=== PATIENT | female | born 1985 | race Caucasian/White ===

== ENCOUNTER 2019-02-13 19:41 | Emergency (ER) | payer SELFPAY ==
--- NOTE | 2019-02-13 20:21 | EDM.PDOC ---
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 Past medical history: As per history of present illness and as reviewed below otherwise noncontributory. Surgical history: As per history of present illness and as reviewed below otherwise noncontributory. Social history: No reported history of drug or alcohol abuse. Family history: As per history of present illness and as reviewed below otherwise noncontributory. Physical exam: HEENT: Atraumatic, normocephalic, pupils reactive, negative for conjunctival pallor or scleral icterus, mucous membranes moist, throat clear, neck supple, nontender, trachea midline. Lungs: Clear to auscultation, breath sounds equal bilaterally, chest nontender. Heart: S1S2, regular, negative for clicks, rubs, or JVD. Abdomen: Soft, nondistended, nontender. Negative for masses or hepatosplenomegaly. Negative for costovertebral tenderness. Pelvis: Stable nontender. Genitourinary: Deferred. Rectal: Deferred. Extremities: Atraumatic, negative for cords or calf pain. Neurovascular unremarkable. Neuro: Awake, alert, oriented. Cranial nerves II through XII unremarkable. Cerebellum unremarkable. Motor and sensory unremarkable throughout. Exam nonfocal. Diagnostics: CBC CMP quantitative beta UA pelvic ultrasound ABO Rh Therapeutics: None Impression: #1 threatened Definitive disposition and diagnosis as appropriate pending reevaluation and review of above. 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 - Past Surgical History HEENT Surgical History: Reports: Eye Surgery GI Surgical History: Reports: Cholecystectomy Female Surgical History: Reports: Section Social & Family History - Family History Family Medical History: Noncontributory - Tobacco Use Smoking Status *Q: Current Every Day Smoker Years of Tobacco use: 18 Packs/Tins Daily: 1 - Recreational Drug Use Recreational Drug Use: Yes Drug Use in Last 12 Months: Yes Recreational Drug Type: Reports: Marijuana/Hashish Recreational Drug Use Frequency: Socially ED ROS GENERAL - Review of Systems Review Of Systems: ROS reveals no pertinent complaints other than HPI. ED EXAM, GENERAL - Physical Exam Exam: See Below (See dictation) Course - Vital Signs Last Recorded V/S: Last Vital Signs Temp 36.4 C 02/13/19 19:41 Pulse 100 02/13/19 19:41 Resp 18 02/13/19 19:41 BP 115/55 L 02/13/19 19:41 Pulse Ox - Orders/Labs/Meds Orders: Active Orders 24 hr Category Date Time Status OB 1st Tri Sgl 1st Gest [US] Stat Exams 02/13/19 20:06 Stop Req OB 2 Or 3 Tri Sgl 1st Gest [US] Stat Exams 02/13/19 20:07 Ordered ABO/RH TYPE [BBK] Stat Lab 02/13/19 20:05 Ordered CBC WITH AUTO DIFF [HEME] Stat Lab 02/13/19 20:05 Ordered COMPREHENSIVE METABOLIC PN,CMP [CHEM] Stat Lab 02/13/19 20:05 Ordered HCG QUANTITATIVE [CHEM] Stat Lab 02/13/19 20:05 Ordered UA RFX ALESSANDRO AND CULT IF INDIC [URIN] Stat Lab 02/13/19 20:05 Ordered Departure - Departure Time of Disposition: 20:20 Disposition: Home, Self-Care 01 Condition: Good Clinical Impression: Threatened - Discharge Information Referrals: PCP,None [Primary Care Provider] - Additional Instructions: The following information is given to patients seen in the emergency department who are being discharged to home. This information is to outline your options for follow-up care. We provide all patients seen in our emergency department with a follow-up referral. The need for follow-up, as well as the timing and circumstances, are variable depending upon the specifics of your emergency department visit. If you don't have a primary care physician on staff, we will provide you with a referral. We always advise you to contact your personal physician following an emergency department visit to inform them of the circumstance of the visit and for follow-up with them and/or the need for any referrals to a consulting specialist. The emergency department will also refer you to a specialist when appropriate. This referral assures that you have the opportunity for followup care with a specialist. All of these measure are taken in an effort to provide you with optimal care, which includes your followup. Under all circumstances we always encourage you to contact your private physician who remains a resource for coordinating your care. When calling for followup care, please make the office aware that this follow-up is from your recent emergency room visit. If for any reason you are refused follow-up, please contact the [facility] emergency department at and asked to speak to the emergency department charge nurse. [facility] Primary Care - Women's Health [address] [place] [id number] Vaginal rest as discussed follow-up women's health about called schedule routine appointment return as needed as discussed - My Orders Last 24 Hours: My Active Orders 02/13/19 20:05 ABO/RH TYPE [BBK] Stat CBC WITH AUTO DIFF [HEME] Stat COMPREHENSIVE METABOLIC PN,CMP [CHEM] Stat HCG QUANTITATIVE [CHEM] Stat UA RFX ALESSANDRO AND CULT IF INDIC [URIN] Stat 02/13/19 20:06 OB 1st Tri Sgl 1st Gest [US] Stat 02/13/19 20:07 OB 2 Or 3 Tri Sgl 1st Gest [US] Stat - Assessment/Plan Last 24 Hours: My Active Orders 02/13/19 20:05 ABO/RH TYPE [BBK] Stat CBC WITH AUTO DIFF [HEME] Stat COMPREHENSIVE METABOLIC PN,CMP [CHEM] Stat HCG QUANTITATIVE [CHEM] Stat UA RFX ALESSANDRO AND CULT IF INDIC [URIN] Stat 02/13/19 20:06 OB 1st Tri Sgl 1st Gest [US] Stat 02/13/19 20:07 OB 2 Or 3 Tri Sgl 1st Gest [US] Stat
[2019-02-13 21:14] LABS: CHLORIDE,CL 105 mmol/L (98-107); SODIUM,NA 137 mmol/L (136-145)
--- NOTE | 2019-02-13 22:13 | US ---
INDICATION: Cramping, LMP October 01, 2018 TECHNIQUE: Ultrasound OB pelvis transabdominal. Real-time lechuga-scale imaging of the fetus was performed. COMPARISON: None FINDINGS: Sonographic imaging demonstrates a single living intrauterine gestation. Fetus demonstrates a regular cardiac rate of 146 beats per minute. Fetus has a breech orientation. The placenta lies posterior without evidence of placenta previa. Amniotic fluid volume appears normal. The composite ultrasound gestational age is calculated at 19 weeks 4 days with an estimated sonographic due date of July 06, 2019. The estimated weight is 319 grams which lies at the 80 %. The following biometric measurements were obtained: Biparietal diameter: 4.25 cm/19 weeks 0 days Head circumference: 15.97 cm/18 weeks 6 days Abdominal circumference: 15.81 cm/21 weeks 0 days Femur length: 2.93 cm/19 weeks 1 day On limited anatomic survey, there is a normal appearance of the cerebral ventricles, cisterna magna and cerebellum. There is a four-chamber heart. There is a three-vessel cord. The kidneys and bladder are normal. The cervical, thoracic, and lumbar spine demonstrate no anomalies. IMPRESSION: 1.Single viable intrauterine . Normal placenta. 2.No intrinsic abnormalities noted on limited anatomic survey. 3. Gestational age is calculated at 19 weeks 3 days with estimated due date of July 06, 2019. Dictated by Farnaz Vargas MD @ Feb 13 2019 10:04PM Signed by Dr. Farnaz Vargas @ Feb 13 2019 10:12PM
== END 2019-02-13 23:12 | disposition home or self-care (01) ==
LOC: MW.ED 19:41
DX: O20.0 Threatened abortion (principal); F17.210 Nicotine dependence, cigarettes, uncomplicated; Z88.8 Allergy status to other drugs, medicaments and biological substances
CPT/HCPCS: 36415; 76805; 76805-26; 80053; 81003; 84702; 85025; 86900; 86901; 99283; 99284-25

== ENCOUNTER 2019-05-01 09:30 | Emergency (ER) | payer SELFPAY ==
--- NOTE | 2019-05-01 09:34 | EDM.PDOC ---
ED HPI GENERAL MEDICAL PROBLEM - General Stated Complaint: TOOTH PAIN Time Seen by Provider: 05/01/19 09:33 Source of Information: Reports: Patient History Limitations: Reports: No Limitations - History of Present Illness INITIAL COMMENTS - FREE TEXT/NARRATIVE: HISTORY AND PHYSICAL: History of present illness: Patient is a 34-year-old female who presents to the emergency room today with complaints of dental pain 6 days to right lower posterior molar. She states that she has been using Aleve routinely with out much relief of the pain and soft tissue swelling. She is 30 weeks , receives care. Patient denies any fever, chills, headache, change in vision, syncope or near syncope. Denies any chest pain, back pain, shortness of breath or cough. Denies any abdominal pain, nausea, vomiting, diarrhea, constipation or dysuria. Denies any vaginal bleeding, cramping, or discharge. Patient has been eating and drinking appropriately. Review of systems: As per history of present illness and below otherwise all systems reviewed and negative. Past medical history: As per history of present illness and as reviewed below otherwise noncontributory. Surgical history: As per history of present illness and as reviewed below otherwise noncontributory. Social history: See social history for further information Family history: As per history of present illness and as reviewed below otherwise noncontributory. Physical exam: General: Well-developed and well-nourished 34-year-old female. Alert and oriented. Nontoxic appearing and in no acute distress. HEENT: Atraumatic, normocephalic, pupils equal and reactive bilaterally, negative for conjunctival pallor or scleral icterus, mucous membranes moist, patient is missing tooth #30. Soft tissue swelling along the gumline from 39- 32. TMs normal bilaterally, throat clear, neck supple, nontender, trachea midline. No drooling or trismus noted. No meningeal signs. No hot potato voice noted. Lungs: Clear to auscultation, breath sounds equal bilaterally, chest nontender. Heart: S1S2, regular rate and rhythm without overt murmur Abdomen: Soft, 30 weeks , nontender to palpation. Skin: Intact, warm, dry. No lesions or rashes noted. Extremities: Atraumatic, moves all extremities per self without difficulty or deficits, negative for cords or calf pain. Neurovascular unremarkable. Neuro: Awake, alert, oriented. Cranial nerves II through XII unremarkable. Cerebellum unremarkable. Motor and sensory unremarkable throughout. Exam nonfocal. Notes: Patient has no current complaints at this time. heart tones were obtained at bedside. Appropriate follow-up and medication education was reviewed. Supportive care measures were reviewed and discussed. Voices understanding and is agreeable to plan of care. Denies any further questions or concerns at this time. Diagnostics: None Therapeutics: Dental Balls Prescription: Clindamycin Impression: Dental Abscess Plan: 1. Please take the antibiotic as prescribed. 2. Tylenol as needed for pain management. "Tooth Balls" have been given to you; apply along the gumline every 2-3 hours as needed. Do not swallow these; external use only. 3. Follow-up with a dentist for definitive care. Return to the ED as needed and as discussed. Definitive disposition and diagnosis as appropriate pending reevaluation and review of above. 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 ED EXAM, ENT - Physical Exam Exam: See Below (See dictation) Course - Vital Signs Last Recorded V/S: Last Vital Signs Temp 97.6 F 05/01/19 09:44 Pulse 95 05/01/19 09:44 Resp 18 05/01/19 09:44 BP 101/60 05/01/19 09:44 Pulse Ox 95 05/01/19 09:44 - Orders/Labs/Meds Orders: Active Orders 24 hr Category Date Time Status Heart Tones [RC] ASDIRECTED Care 05/01/19 09:34 Active Meds: Medications Discontinued Medications Generic Name Dose Route Start Last Admin Trade Name Gallito PRN Reason Stop Dose Admin Benzocaine 2 each 05/01/19 09:48 Hurricaine One 20% MUCMEM 05/01/19 09:49 ONETIME ONE Lidocaine HCl 15 ml 05/01/19 09:48 Xylocaine 2% Viscous PO 05/01/19 09:49 ONETIME ONE Departure - Departure Time of Disposition: 09:58 Disposition: Home, Self-Care 01 Clinical Impression: Dental abscess - Discharge Information Prescriptions: Clindamycin HCl 300 mg PO TID 10 Days #30 capsule Instructions: Dental Abscess, [id number] Referrals: PCP,Unknown [Primary Care Provider] - Additional Instructions: The following information is given to patients seen in the emergency department who are being discharged to home. This information is to outline your options for follow-up care. We provide all patients seen in our emergency department with a follow-up referral. The need for follow-up, as well as the timing and circumstances, are variable depending upon the specifics of your emergency department visit. If you don't have a primary care physician on staff, we will provide you with a referral. We always advise you to contact your personal physician following an emergency department visit to inform them of the circumstance of the visit and for follow-up with them and/or the need for any referrals to a consulting specialist. The emergency department will also refer you to a specialist when appropriate. This referral assures that you have the opportunity for follow-up care with a specialist. All of these measure are taken in an effort to provide you with optimal care, which includes your follow-up. Under all circumstances we always encourage you to contact your private physician who remains a resource for coordinating your care. When calling for follow-up care, please make the office aware that this follow-up is from your recent emergency room visit. If for any reason you are refused follow-up, please contact the Emergency Department at and asked to speak to the emergency department charge nurse. Primary Care [address] [place] [id number] [facility] [address] [place] [phone] 1. Please take the antibiotic as prescribed. 2. Tylenol as needed for pain management. "Tooth Balls" have been given to you; apply along the gumline every 2-3 hours as needed. Do not swallow these; external use only. 3. Follow-up with a dentist for definitive care. Return to the ED as needed and as discussed. - My Orders Last 24 Hours: My Active Orders 05/01/19 09:34 Heart Tones [RC] ASDIRECTED - Assessment/Plan Last 24 Hours: My Active Orders 05/01/19 09:34 Heart Tones [RC] ASDIRECTED
[2019-05-01] MEDS ORDERED: Benzocaine 20% Topical Spray UD MUCMEM ONE (09:48)
[2019-05-01] MEDS ORDERED: Lidocaine 2% Viscous Solution 15 ML Cup PO ONE (09:48)
== END 2019-05-01 10:10 | disposition home or self-care (01) ==
LOC: MW.ED 09:30
DX: O99.613 Diseases of the digestive system complicating pregnancy, third trimester (principal); K04.7 Periapical abscess without sinus; O09.523 Supervision of elderly multigravida, third trimester; Z88.1 Allergy status to other antibiotic agents; Z88.8 Allergy status to other drugs, medicaments and biological substances; Z90.49 Acquired absence of other specified parts of digestive tract; Z3A.30 30 weeks gestation of pregnancy
CPT/HCPCS: 99282; A9270

== ENCOUNTER 2019-05-08 12:20 | Emergency (ER) | payer SELFPAY ==
[2019-05-08] MEDS ORDERED: Sodium Chloride 0.9% 1,000 ML IV ONE (12:35)
[2019-05-08] MEDS ORDERED: cefTRIAXone 1 GM in Premix Bag 1 BAG IV ONE (12:36)
--- NOTE | 2019-05-08 12:49 | EDM.PDOC ---
ED HPI GENERAL MEDICAL PROBLEM - General Chief Complaint: ENT Problem Stated Complaint: ABSESS Time Seen by Provider: 05/08/19 12:21 Source of Information: Reports: Patient History Limitations: Reports: No Limitations - History of Present Illness INITIAL COMMENTS - FREE TEXT/NARRATIVE: HISTORY AND PHYSICAL: History of present illness: Patient is a 34-year-old female who presents to the emergency room with complaints of right lower dental pain and abscess. She was seen in our emergency room for this dental abscess and was placed on clindamycin on . She has been taking her medication and did follow-up with a dentist today. She states that the dentist was going to drain the abscess but was concerned that it was "going into my neck" and wanted her to be reevaluated with lab work and possible imaging. Patient is currently 30 weeks , seeing for her OBGYN needs. She has no OB related concerns or complaints (vaginal bleeding, cramping, low back pain, etc..). 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 Review of systems: As per history of present illness and below otherwise all systems reviewed and negative. Past medical history: As per history of present illness and as reviewed below otherwise noncontributory. Surgical history: As per history of present illness and as reviewed below otherwise noncontributory. Social history: See social history for further information Family history: As per history of present illness and as reviewed below otherwise noncontributory. Physical exam: General: Well-developed and well-nourished 34-year-old female. Alert and oriented. Nontoxic appearing and in no acute distress. HEENT: Atraumatic, normocephalic, pupils equal and reactive bilaterally, negative for conjunctival pallor or scleral icterus, mucous membranes moist, TMs normal bilaterally, dental caries noted, soft tissue swelling along the gumline to the right posterior molars, throat clear, mild soft tissue swelling to right submandibular space with tenderness to palpation. Neck is supple, trachea midline. No drooling or trismus noted. No meningeal signs. No hot potato voice noted. Lungs: Clear to auscultation, breath sounds equal bilaterally, chest nontender. Heart: S1S2, regular rate and rhythm without overt murmur Abdomen: Soft, 30 weeks gestation, nontender. Negative for masses or hepatosplenomegaly. Negative for costovertebral tenderness. Skin: Intact, warm, dry. No lesions or rashes noted. Extremities: Atraumatic, moves all extremities per self without difficulty or deficits, negative for cords or calf pain. Neurovascular unremarkable. Neuro: Awake, alert, oriented. Cranial nerves II through XII unremarkable. Cerebellum unremarkable. Motor and sensory unremarkable throughout. Exam nonfocal. Notes: Risks versus benefits were thoroughly explained with patient and has been at bedside for a CT of the maxillofacial to rule out abscess. She would like to proceed forward with the CT scan. Increased soft tissue adjacent to the right angle of the mandible consistent with an abscess. Right-sided likely reactive cervical lip adenopathy. All findings were shared with the patient. She received Rocephin while here. I will extend her clindamycin for a total of 14 days. We discussed the need for follow- up with the oral surgeon. She states that the dentist she was at in [facility] gave her information for follow-up. 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 Vital signs remain stable Supportive care measures were reviewed and discussed. Voices understanding and is agreeable to plan of care. Denies any further questions or concerns at this time. Diagnostics: CBC, CMP, strep screen, CT maxillofacial Therapeutics: IV fluid, Rocephin Prescription: Clindamycin Impression: Dental Abscess Lymphadenopathy Plan: Take the Clindamycin for a total of 14 days (added 4 more days to your current regiment). Tylenol as needed See Dr Mcnally tomorrow as you have arranged. As we discussed the need to follow-up with the oral surgeon. Return to the ED as needed and as discussed. Definitive disposition and diagnosis as appropriate pending reevaluation and review of above. 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 - Infectious Disease History Infectious Disease History: Reports: Chicken Pox - Past Surgical History HEENT Surgical History: Reports: Eye Surgery GI Surgical History: Reports: Cholecystectomy Female Surgical History: Reports: Section Social & Family History - Family History Family Medical History: Noncontributory - Tobacco Use Smoking Status *Q: Current Every Day Smoker Years of Tobacco use: 18 Packs/Tins Daily: 1 - Caffeine Use Caffeine Use: Reports: Coffee, Energy Drinks, Soda - Recreational Drug Use Recreational Drug Use: No ED ROS ENT - Review of Systems Review Of Systems: ROS reveals no pertinent complaints other than HPI. ED EXAM, ENT - Physical Exam Exam: See Below (See dictation) Course - Vital Signs Last Recorded V/S: Last Vital Signs Temp 96.1 F 05/08/19 12:27 Pulse 92 05/08/19 12:27 Resp 18 05/08/19 12:27 BP 103/67 05/08/19 12:27 Pulse Ox 98 05/08/19 12:27 - Orders/Labs/Meds Orders: Active Orders 24 hr Category Date Time Status Heart Tones [ Heart Rate] [RC] Click to Edit Care 05/08/19 12:59 Active CULTURE STREP A CONFIRMATION [RM] Stat Lab 05/08/19 12:41 Results STREP SCRN A RAPID W CULT CONF [RM] Stat Lab 05/08/19 12:41 Results Labs: Laboratory Tests 05/08/19 05/08/19 Range/Units 12:41 12:41 WBC 16.23 H (4.0-11.0) K/uL RBC 3.74 L (4.30-5.90) M/uL Hgb 12.1 (12.0-16.0) g/dL Hct 35.2 L (36.0-46.0) % MCV 94.1 (80.0-98.0) fL MCH 32.4 H (27.0-32.0) pg MCHC 34.4 (31.0-37.0) g/dL RDW Std Deviation 45.7 (28.0-62.0) fl RDW Coeff of Mihai 13 (11.0-15.0) % Plt Count 399 (150-400) K/uL MPV 9.20 (7.40-12.00) fL Neut % (Auto) 73.9 (48.0-80.0) % Lymph % (Auto) 21.1 (16.0-40.0) % [place] % (Auto) 4.0 (0.0-15.0) % Eos % (Auto) 0.8 (0.0-7.0) % Baso % (Auto) 0.2 (0.0-1.5) % Neut # (Auto) 12.0 H (1.4-5.7) K/uL Lymph # (Auto) 3.4 H (0.6-2.4) K/uL [place] # (Auto) 0.7 (0.0-0.8) K/uL Eos # (Auto) 0.1 (0.0-0.7) K/uL Baso # (Auto) 0.0 (0.0-0.1) K/uL Nucleated RBC % 0.0 /100WBC Nucleated RBCs # 0 K/uL Sodium 137 (136-145) mmol/L Potassium 3.7 (3.5-5.1) mmol/L Chloride 104 (98-107) mmol/L Carbon Dioxide 23.0 (21.0-32.0) mmol/L BUN 7 (7.0-18.0) mg/dL Creatinine 0.7 (0.6-1.0) mg/dL Est Cr Clr Drug Dosing 113.16 mL/min Estimated GFR (MDRD) > 60.0 ml/min Glucose 114 H (74-106) mg/dL Calcium 8.6 (8.5-10.1) mg/dL Total Bilirubin 0.2 (0.2-1.0) mg/dL AST 9 L (15-37) IU/L ALT 14 (14-63) IU/L Alkaline Phosphatase 127 H (46-116) U/L Total Protein 6.1 L (6.4-8.2) g/dL Albumin 2.6 L (3.4-5.0) g/dL Globulin 3.5 (2.6-4.0) g/dL Albumin/Globulin Ratio 0.7 L (0.9-1.6) Meds: Medications Discontinued Medications Generic Name Dose Route Start Last Admin Trade Name Freq PRN Reason Stop Dose Admin Sodium Chloride 1,000 mls @ 999 mls/hr 05/08/19 12:35 05/08/19 12:45 Normal Saline IV 05/08/19 13:35 999 mls/hr STAT ONE Administration Ceftriaxone Sodium/Dextrose 1 50 mls @ 100 mls/hr 05/08/19 12:36 05/08/19 12: 45 gm/ Premix IV 05/08/19 13:05 100 mls/hr ONETIME ONE Administration Departure - Departure Time of Disposition: 15:25 Disposition: Home, Self-Care 01 Clinical Impression: Lymphadenopathy, Dental abscess - Discharge Information Instructions: Dental Abscess, [id number] Referrals: David Mcnally MD [Physician] - 05/09/19 11:15 am PCP,Chema [Primary Care Provider] - Forms: ED Department Discharge Additional Instructions: The following information is given to patients seen in the emergency department who are being discharged to home. This information is to outline your options for follow-up care. We provide all patients seen in our emergency department with a follow-up referral. The need for follow-up, as well as the timing and circumstances, are variable depending upon the specifics of your emergency department visit. If you don't have a primary care physician on staff, we will provide you with a referral. We always advise you to contact your personal physician following an emergency department visit to inform them of the circumstance of the visit and for follow-up with them and/or the need for any referrals to a consulting specialist. The emergency department will also refer you to a specialist when appropriate. This referral assures that you have the opportunity for follow-up care with a specialist. All of these measure are taken in an effort to provide you with optimal care, which includes your follow-up. Under all circumstances we always encourage you to contact your private physician who remains a resource for coordinating your care. When calling for follow-up care, please make the office aware that this follow-up is from your recent emergency room visit. If for any reason you are refused follow-up, please contact the [facility] at and asked to speak to the emergency department charge nurse. [facility] [address] [place] [id number] [facility] [address] [place] [id number] Take the Clindamycin for a total of 14 days (added 4 more days to your current regiment). Tylenol as needed See Dr Mcnally tomorrow as you have arranged. As we discussed the need to follow-up with the oral surgeon. Return to the ED as needed and as discussed. - My Orders Last 24 Hours: My Active Orders 05/08/19 12:41 CULTURE STREP A CONFIRMATION [RM] Stat STREP SCRN A RAPID W CULT CONF [RM] Stat 05/08/19 12:59 Heart Tones [ Heart Rate] [RC] Click to Edit - Assessment/Plan Last 24 Hours: My Active Orders 05/08/19 12:41 CULTURE STREP A CONFIRMATION [RM] Stat STREP SCRN A RAPID W CULT CONF [RM] Stat 05/08/19 12:59 Heart Tones [ Heart Rate] [RC] Click to Edit
[2019-05-08 13:10] LABS: CHLORIDE,CL 104 mmol/L (98-107); SODIUM,NA 137 mmol/L (136-145)
--- NOTE | 2019-05-08 15:02 | CT ---
EXAMINATION: CT facial bones HISTORY: Submandibular swelling COMPARISON: None TECHNIQUE: Axial CT imaging obtained through the facial bones without contrast. Coronal and sagittal reconstructions obtained. FINDINGS: There is moderate soft tissue swelling adjacent to the angle of the right mandible. There is adjacent stranding and minimal mass effect on the right airway. There is also a slight periapical lucency adjacent to the right posterior mandibular molar. There are a few right-sided submandibular and cervical chain lymph nodes which are borderline in size and likely reactive. Osseous structures otherwise appear unremarkable. Paranasal sinuses and mastoid air cells are clear. Orbits and globes are symmetric. Parotid and submandibular glands are otherwise symmetric. IMPRESSION: 1. Increased soft tissue adjacent to the right angle of the mandible consistent with developing phlegmon/abscess. Likely secondary to a periapical lucency involving the right posterior mandibular molar. 2. Right-sided, likely reactive, cervical lymphadenopathy.
== END 2019-05-08 15:32 | disposition home or self-care (01) ==
LOC: MW.ED 12:20
DX: K04.7 Periapical abscess without sinus (principal); K02.9 Dental caries, unspecified; R59.0 Localized enlarged lymph nodes
CPT/HCPCS: 36415; 70486; 80053; 85025; 87081; 87880; 96361; 96365; 99283; A4217; J0696; J7040; 99284

== ENCOUNTER 2019-05-17 14:20 | Emergency (ER) | payer OTHER ==
[2019-05-17] MEDS ORDERED: Sodium Chloride 0.9% 1,000 ML IV ONE (14:39)
--- NOTE | 2019-05-17 14:44 | EDM.PDOC ---
ED HPI GENERAL MEDICAL PROBLEM - General Chief Complaint: ENT Problem Stated Complaint: FACIAL SWELLING;RT SIDE Time Seen by Provider: 05/17/19 14:21 Source of Information: Reports: Patient History Limitations: Reports: No Limitations - History of Present Illness INITIAL COMMENTS - FREE TEXT/NARRATIVE: HISTORY AND PHYSICAL: History of present illness: Patient is a 34-year-old female presents to the ED today for concern of right sided pressures laying after having a recent tooth pulled due to abscess. Patient states she had surgery about 5 days ago in [place]. Patient states she has not been able to eat or drink since the surgery. Patient is approximately 32 weeks gestation and does follow along with Dr. Mcnally. Patient was seen in the ED on 2 separate occasions for this. The first was 05/01/19 in which she was placed on clindamycin for dental abscess and given dental balls. She had returned and was seen on 05/08/19 and had received a maxillofacial CT showing the start of a dental abscess and was placed on a longer duration of clindamycin with follow up with oral surgeon. Patient states she has taken the antibiotics accordingly and had the tooth removed. States since then, she states that the swelling has worsened and she now feels like she is not improving. Patient is still taking clindamycin and has Tylenol 3 for pain provided by the surgeon. Patient denies fever, chills, chest pain, shortness of breath, or cough. Denies headache, neck stiff ness, change in vision, syncope, or near syncope. Denies nausea, vomiting, abdominal pain, diarrhea, constipation, or dysuria. Has not noted any blood in urine or stool. Patient denies vaginal bleeding, abdominal cramping. Review of systems: As per history of present illness and below otherwise all systems reviewed and negative. Past medical history: As per history of present illness and as reviewed below otherwise noncontributory. Surgical history: As per history of present illness and as reviewed below otherwise noncontributory. Social history: See social history for further information Family history: As per history of present illness and as reviewed below otherwise noncontributory. Physical exam: General: Patient is alert, oriented, and in no acute distress. Patient sitting comfortably on exam table but is tired appearing. Patient breathing comfortable without distress. HEENT: Atraumatic, normocephalic, pupils equal and reactive bilaterally, negative for conjunctival pallor or scleral icterus, mucous membranes dry, TMs normal bilaterally, throat clear, neck supple, nontender, trachea midline. No drooling or trismus noted. No meningeal signs. No hot potato voice noted. Moderate amount of swelling around the right side of the mandible with pain on palpation. The area of swelling is firm on the inferior aspect. Exam of mouth is limited due to pain and patient's range of motion of the jaw. Negative for edema underneath the tongue or obvious edema of the mouth. Lungs: Clear to auscultation, breath sounds equal bilaterally, chest nontender. Breathing comfortably without secondary accessory muscle use or intercostal retractions. No stridor. Heart: S1S2, regular rate and rhythm without overt murmur Abdomen: Gravid, Soft, nondistended, nontender. Negative for masses or hepatosplenomegaly. Negative for costovertebral tenderness. Pelvis: Stable nontender. Genitourinary: Deferred. Rectal: Deferred. Skin: Intact, warm, dry. No lesions or rashes noted. Extremities: Atraumatic, negative for cords or calf pain. Neurovascular unremarkable. Neuro: Awake, alert, oriented. Cranial nerves II through XII unremarkable. Cerebellum unremarkable. Motor and sensory unremarkable throughout. Exam nonfocal. Notes: FHR at bedside 168bpm. Dr. Arreguin directly involved in patient care. Discussed all risks and benefits of CT scan while .. She agrees, consents, and voice understanding. Dr. Pierre, ENT specialist and Dr. Powell at [facility], consulted on patient and accepting of transfer. Dr. Pierre personally reviewed patients CT scan and also reassured that there is no concern that the airway is involved. Patient does request private vehicle transfer. Voices understanding and is agreeable to plan of care. Denies any further questions or concerns at this time. Diagnostics: CBC, CMP, lactate, blood cultures x 2, soft tissue neck CT without contrast Therapeutics: Saline Prescription: None Impression: Retromandibular abscess Plan: 1. Transfer to [facility] to Dr. Pierre and Dr. Powell via private vehicle Definitive disposition and diagnosis as appropriate pending reevaluation and review of above. 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 - Infectious Disease History Infectious Disease History: Reports: Chicken Pox - Past Surgical History HEENT Surgical History: Reports: Eye Surgery GI Surgical History: Reports: Cholecystectomy Female Surgical History: Reports: Section Social & Family History - Family History Family Medical History: Noncontributory - Tobacco Use Smoking Status *Q: Current Every Day Smoker Years of Tobacco use: 20 Packs/Tins Daily: 1 - Caffeine Use Caffeine Use: Reports: Coffee - Recreational Drug Use Recreational Drug Use: No ED ROS GENERAL - Review of Systems Review Of Systems: ROS reveals no pertinent complaints other than HPI. ED EXAM, GENERAL - Physical Exam Exam: See Below (see dictation) Course - Vital Signs Last Recorded V/S: Last Vital Signs Temp 35.7 C 05/17/19 14:23 Pulse 123 H 05/17/19 14:23 Resp 16 05/17/19 14:23 BP 93/69 05/17/19 14:23 Pulse Ox - Orders/Labs/Meds Orders: Active Orders 24 hr Category Date Time Status CULTURE BLOOD [BC] Stat Lab 05/17/19 14:45 Received CULTURE BLOOD [BC] Stat Lab 05/17/19 14:54 Received Blood Culture x2 Reflex Set [OM.PC] Stat Oth 05/17/19 14:38 Ordered Labs: Laboratory Tests 05/17/19 05/17/19 05/17/19 Range/Units 14:45 14:45 14:53 WBC 17.75 H (4.0-11.0) K/uL RBC 3.74 L (4.30-5.90) M/uL Hgb 11.9 L (12.0-16.0) g/dL Hct 35.4 L (36.0-46.0) % MCV 94.7 (80.0-98.0) fL MCH 31.8 (27.0-32.0) pg MCHC 33.6 (31.0-37.0) g/dL RDW Std Deviation 46.5 (28.0-62.0) fl RDW Coeff of Mihai 13 (11.0-15.0) % Plt Count 400 (150-400) K/uL MPV 9.40 (7.40-12.00) fL Neut % (Auto) 74.8 (48.0-80.0) % Lymph % (Auto) 17.7 (16.0-40.0) % [place] % (Auto) 6.7 (0.0-15.0) % Eos % (Auto) 0.7 (0.0-7.0) % Baso % (Auto) 0.1 (0.0-1.5) % Neut # (Auto) 13.3 H (1.4-5.7) K/uL Lymph # (Auto) 3.2 H (0.6-2.4) K/uL [place] # (Auto) 1.2 H (0.0-0.8) K/uL Eos # (Auto) 0.1 (0.0-0.7) K/uL Baso # (Auto) 0.0 (0.0-0.1) K/uL Nucleated RBC % 0.0 /100WBC Nucleated RBCs # 0 K/uL Lactate 1.7 (0.20-2.00) mmol/L Sodium 137 (136-145) mmol/L Potassium 3.4 L (3.5-5.1) mmol/L Chloride 104 (98-107) mmol/L Carbon Dioxide 21.5 (21.0-32.0) mmol/L BUN 6 L (7.0-18.0) mg/dL Creatinine 0.7 (0.6-1.0) mg/dL Est Cr Clr Drug Dosing 113.16 mL/min Estimated GFR (MDRD) > 60.0 ml/min Glucose 118 H (74-106) mg/dL Calcium 9.0 (8.5-10.1) mg/dL Total Bilirubin 0.3 (0.2-1.0) mg/dL AST 18 (15-37) IU/L ALT 18 (14-63) IU/L Alkaline Phosphatase 193 H (46-116) U/L Total Protein 6.6 (6.4-8.2) g/dL Albumin 2.5 L (3.4-5.0) g/dL Globulin 4.1 H (2.6-4.0) g/dL Albumin/Globulin Ratio 0.6 L (0.9-1.6) Meds: Medications Discontinued Medications Generic Name Dose Route Start Last Admin Trade Name Freq PRN Reason Stop Dose Admin Sodium Chloride 1,000 mls @ 999 mls/hr 05/17/19 14:39 05/17/19 15:08 Normal Saline IV 05/17/19 15:39 999 mls/hr STAT ONE Administration Departure - Departure Time of Disposition: 18:20 Disposition: DC/Tfer to [facility] 02 Clinical Impression: Mandibular abscess Qualifiers: Weeks of gestation: 32 weeks Qualified Code(s): Z3A.32 - 32 weeks gestation of - Discharge Information Additional Instructions: 1. Go straight/directly to [facility] in [place]. [facility] [address] [place] [address] - My Orders Last 24 Hours: My Active Orders 05/17/19 14:38 Blood Culture x2 Reflex Set [OM.PC] Stat 05/17/19 14:45 CULTURE BLOOD [BC] Stat 05/17/19 14:54 CULTURE BLOOD [BC] Stat - Assessment/Plan Last 24 Hours: My Active Orders 05/17/19 14:38 Blood Culture x2 Reflex Set [OM.PC] Stat 05/17/19 14:45 CULTURE BLOOD [BC] Stat 05/17/19 14:54 CULTURE BLOOD [BC] Stat
[2019-05-17 15:27] LABS: BLOOD UREA NITROGEN,BUN 6 mg/dL (7.0-18.0); CARBON DIOXIDE,CO2 21.5 mmol/L (21.0-32.0); CHLORIDE,CL 104 mmol/L (98-107); GLUCOSE RANDOM 118 mg/dL (74-106); POTASSIUM,K 3.4 mmol/L (3.5-5.1); SODIUM,NA 137 mmol/L (136-145)
--- NOTE | 2019-05-17 17:12 | CT ---
INDICATION: Right-sided facial swelling. Worsening facial pain. History of dental abscess. TECHNIQUE: Noncontrast axial CT of the soft tissue neck were acquired in usual fashion. COMPARISON: From May 08, 2019. FINDINGS: Visualized posterior fossa structures are unremarkable. The cervical airway is widely patent. The valleculae and piriform sinuses are within normal limits. The thyroid and parotid glands appear within normal limits. The right submandibular gland appears mildly enlarged likely due to regional inflammatory change. The left submandibular gland appears within normal limits. Grossly enlarged right level 1 lymph nodes. These appear to have increased in size since the prior study. There has been interval development of a 18 mm fluid density collection dorsal to the right mandible ventral to the right parotid gland appearing most compatible with an abscess formation. This is not appear to be any evidence of osseous erosion at this time. Visualized paranasal sinuses appear clear. Multiple enlarged bilateral level 2 lymph nodes likely reactive in nature. Small region of emphysematous change of the dorsal right upper lung field. IMPRESSION: 1. Worsening adenopathy within the right level 1 region as well as mildly prominent level 2 lymph nodes compatible with reactive changes. 2. Interval development of a right retromandibular abscess. 3. No evidence of airway compromise. 4. Small region of emphysematous change of the posterior right upper lung field that may represent emphysematous change or residua from prior inflammatory insult. Further characterization with CT of the chest may be beneficial if clinically warranted. 5. Preliminary results were discussed with the ordering doctor at 1705 hours. Please note that all CT scans at this facility use dose modulation, iterative reconstruction, and/or weight-based dosing when appropriate to reduce radiation dose to as low as reasonably achievable. Dictated by Kenton Rodriguez MD @ May 17 2019 5:02PM Signed by Dr. Kenton Rodriguez @ May 17 2019 5:09PM
== END 2019-05-17 18:46 ==
LOC: MW.ED 14:20
DX: O99.89 Other specified diseases and conditions complicating pregnancy, childbirth and the puerperium (principal); M27.2 Inflammatory conditions of jaws; O09.523 Supervision of elderly multigravida, third trimester; O99.333 Smoking (tobacco) complicating pregnancy, third trimester; F17.210 Nicotine dependence, cigarettes, uncomplicated; Z88.1 Allergy status to other antibiotic agents; Z90.49 Acquired absence of other specified parts of digestive tract; Z3A.32 32 weeks gestation of pregnancy
CPT/HCPCS: 36415; 70490; 80053; 83605; 85025; 87040; 96360; 99284; J7040; 99283

== ENCOUNTER 2019-06-30 05:29 | Inpatient (IN) | payer MEDICAID, OTHER ==
[2019-06-30] MEDS ORDERED: ceFAZolin 2 GM in Premix Bag 1 BAG IV ONE (05:44)
[2019-06-30] MEDS ORDERED: Sodium Chloride 0.9% 10 ML SDV IV PRN (05:44)
[2019-06-30] MEDS ORDERED: Citric Acid/Sodium Citrate Solution 30 ML Cup PO ONE (05:44)
[2019-06-30] MEDS ORDERED: Sodium Chloride 0.9% 2.5 ML Syringe FLUSH PRN (05:44)
[2019-06-30] MEDS ORDERED: Sodium Chloride 0.9% 10 ML Syringe FLUSH PRN (05:44)
[2019-06-30] MEDS ORDERED: Oxytocin/0.9 % Sodium Chloride 30 UNIT/500 ML BAG IV SCH (05:45)
[2019-06-30] MEDS: Lactated Ringers 1,000 ML IV SCH ×3 (06:53→08:04)
[2019-06-30] MEDS ORDERED: Ketorolac 30 MG/ML SDV ONE (07:06)
[2019-06-30] MEDS ORDERED: Phenylephrine/Normal Saline 100 MCG/ML 10 ML Syringe ONE (07:06)
[2019-06-30] MEDS ORDERED: Ondansetron 4 MG/2 ML SDV ONE (07:06)
[2019-06-30] MEDS ORDERED: Morphine PF 10 MG/10 ML SDV ONE (07:07)
[2019-06-30] MEDS ORDERED: Octyl 2-Cyanoacrylate 1 Tube ONE (07:29)
--- NOTE | 2019-06-30 07:44 | PCM.PREANE ---
Preanesthetic Assessment - Anesthesia/Transfusion/Family Hx Anesthesia History: Prior Anesthesia Without Reaction Transfusion History: No Prior Transfusion(s) - Review of Systems General: No Symptoms Pulmonary: No Symptoms Cardiovascular: No Symptoms Gastrointestinal: No Symptoms Neurological: No Symptoms - Physical Assessment NPO Status Date: 06/30/19 NPO Status Time: 00:05 Height: 1.73 m Weight: 94.347 kg ASA Class: 1 Mental Status: Alert & Oriented x3 Dentition: Reports: Normal Dentition - Lab Values: Laboratory Last Values WBC 13.58 K/uL (4.0-11.0) H 06/30/19 06:12 RBC 3.76 M/uL (4.30-5.90) L 06/30/19 06:12 Hgb 12.1 g/dL (12.0-16.0) 06/30/19 06:12 Hct 36.1 % (36.0-46.0) 06/30/19 06:12 MCV 96.0 fL (80.0-98.0) 06/30/19 06:12 MCH 32.2 pg (27.0-32.0) H 06/30/19 06:12 MCHC 33.5 g/dL (31.0-37.0) 06/30/19 06:12 RDW Std Deviation 50.3 fl (28.0-62.0) 06/30/19 06:12 RDW Coeff of Mihai 14 % (11.0-15.0) 06/30/19 06:12 Plt Count 355 K/uL (150-400) 06/30/19 06:12 MPV 9.80 fL (7.40-12.00) 06/30/19 06:12 Nucleated RBC % 0.0 /100WBC 06/30/19 06:12 Nucleated RBCs # 0 K/uL 06/30/19 06:12 - Allergies Allergies/Adverse Reactions: Allergies Allergy/AdvReac Type Severity Reaction Status Date / Time amoxicillin Allergy Hives Verified 06/26/19 11:18 tetrahydrozoline Allergy Burning Verified 06/26/19 11:18 [From Visine] - Acknowledgements Anesthesia Type Planned: Spinal Pt an Appropriate Candidate for the Planned Anesthesia: Yes Alternatives and Risks of Anesthesia Discussed w Pt/Guardian: Yes Pt/Guardian Understands and Agrees with Anesthesia Plan: Yes PreAnesthesia Questionnaire HEENT History: Reports: Retinal Detachment Other HEENT History: wears glasses Cardiovascular History: Reports: Other (See Below) Other Cardiovascular History: murmur as a infant Respiratory History: Reports: None Gastrointestinal History: Reports: None Genitourinary History: Reports: None 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: , 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 Musculoskeletal History: Reports: Fracture Other Musculoskeletal History: hx of fx foot as a young child Neurological History: Reports: Migraines Other Neuro History: migraines in highschool Psychiatric History: Reports: None Endocrine/Metabolic History: Reports: None Hematologic History: Reports: None Immunologic History: Reports: None Oncologic (Cancer) History: Reports: None Dermatologic History: Reports: None - Infectious Disease History Infectious Disease History: Reports: Chicken Pox - Past Surgical History Head Surgeries/Procedures: Reports: None HEENT Surgical History: Reports: Eye Surgery Other HEENT Surgeries/Procedures: excision of mandibular abscess Cardiovascular Surgical History: Reports: None Respiratory Surgical History: Reports: None GI Surgical History: Reports: Cholecystectomy Female Surgical History: Reports: Section Endocrine Surgical History: Reports: None Neurological Surgical History: Reports: None Musculoskeletal Surgical History: Reports: None Oncologic Surgical History: Reports: None Dermatological Surgical History: Reports: None - SUBSTANCE USE Smoking Status *Q: Current Every Day Smoker Tobacco Use Within Last Twelve Months: Cigarettes Second Hand Smoke Exposure: Yes Recreational Drug Use History: Yes Recreational Drug Type: Reports: Marijuana/Hashish - HOME MEDS Home Medications: Home Meds #103/Iron Fumarate/Fa [ ] 1 tab PO DAILY 02/13/19 [ History] - CURRENT (IN HOUSE) MEDS Current Meds: Current Medications Lactated Ringer's (Ringers, Lactated) 1,000 mls @ 500 mls/hr IV BOLUS PONCE Last Admin: 06/30/19 07:32 Dose: 999 mls/hr Oxytocin/Sodium Chloride (Oxytocin 30 Unit/500 Ml-Ns) 30 unit in 500 mls @ 250 mls/hr IV TITRATE PONCE Sodium Chloride (Saline Flush) 10 ml FLUSH ASDIRECTED PRN PRN Reason: Keep Vein Open Sodium Chloride (Saline Flush) 2.5 ml FLUSH ASDIRECTED PRN PRN Reason: Keep Vein Open Sodium Chloride (Normal Saline) 10 ml IV ASDIRECTED PRN PRN Reason: IV Use Discontinued Medications Citric Acid/Sodium Citrate (Bicitra Solution) 30 ml PO ONETIME ONE Stop: 06/30/19 05:45 Cefazolin Sodium/Dextrose 2 gm (/ Premix) 50 mls @ 100 mls/hr IV ONETIME ONE Stop: 06/30/19 06:13 Ketorolac Tromethamine (Toradol) Confirm Administered Dose 30 mg .ROUTE .STK- MED ONE Stop: 06/30/19 07:07 Morphine Sulfate (Duramorph Pf) Confirm Administered Dose 10 mg .ROUTE .STK-MED ONE Stop: 06/30/19 07:08 Octyl Cyanoacrylate (Dermabond Advance) Confirm Administered Dose 1 applic .ROUTE .STK-MED ONE Stop: 06/30/19 07:30 Ondansetron HCl (Zofran) Confirm Administered Dose 4 mg .ROUTE .STK-MED ONE Stop: 06/30/19 07:07 Phenylephrine HCl (Phenylephrine In Ns 100 Mcg/Ml) Confirm Administered Dose 1 mg .ROUTE .STK-MED ONE Stop: 06/30/19 07:07
[2019-06-30] MEDS ORDERED: Sodium Chloride 0.9% 20 ML ONE (07:58)
[2019-06-30] MEDS ORDERED: ceFAZolin 1 GM Vial ONE (07:58)
[2019-06-30] MEDS ORDERED: Citric Acid/Sodium Citrate Solution 30 ML Cup ONE (08:01)
[2019-06-30] MEDS ORDERED: fentaNYL 100 MCG/2 ML SDV IVPUSH PRN (08:40)
[2019-06-30] MEDS ORDERED: Acetaminophen/oxyCODONE 325-5 MG Tab PO PRN ×2 (08:40→08:49)
[2019-06-30] MEDS ORDERED: Nalbuphine 10 MG/1 ML Vial IVPUSH PRN (08:40)
[2019-06-30] MEDS ORDERED: Ibuprofen 800 MG Tab PO PRN (08:49)
[2019-06-30] MEDS ORDERED: Lanolin 100% Cream 7 GM Tube TOP PRN (08:49)
[2019-06-30] MEDS ORDERED: Bisacodyl 10 MG Supp RECTAL PRN (08:49)
[2019-06-30] MEDS ORDERED: diphenhydrAMINE 50 MG/ML SDV IVPUSH PRN (08:49)
[2019-06-30] MEDS ORDERED: Ondansetron 4 MG/2 ML SDV IVPUSH PRN (08:49)
--- NOTE | 2019-06-30 08:52 | PCM.LDHP ---
L&D History of Present Illness - General Date of Service: 06/30/19 Admit Problem/Dx: Patient Status Order with Admit Dx/Problem 06/30/19 05:44 Patient Status [ADT] Routine 06/30/19 08:49 Patient Status [ADT] Routine Admission Diagnosis/Problem Admission Diagnosis/Problem Source of Information: Patient History Limitations: Reports: No Limitations - History of Present Illness Improves with: Reports: None Worsens with: Reports: None Associated Symptoms: Reports: N - Related Data Allergies/Adverse Reactions: Allergies Allergy/AdvReac Type Severity Reaction Status Date / Time amoxicillin Allergy Hives Verified 06/26/19 11:18 tetrahydrozoline Allergy Burning Verified 06/26/19 11:18 [From Visine] Home Medications: Home Meds #103/Iron Fumarate/Fa [ ] 1 tab PO DAILY 02/13/19 [ History] Past Medical History HEENT History: Reports: Retinal Detachment Other HEENT History: wears glasses Cardiovascular History: Reports: Other (See Below) Other Cardiovascular History: murmur as a infant Respiratory History: Reports: None Gastrointestinal History: Reports: None Genitourinary History: Reports: None 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: , 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 Musculoskeletal History: Reports: Fracture Other Musculoskeletal History: hx of fx foot as a young child Neurological History: Reports: Migraines Other Neuro History: migraines in highschool Psychiatric History: Reports: None Endocrine/Metabolic History: Reports: None Hematologic History: Reports: None Immunologic History: Reports: None Oncologic (Cancer) History: Reports: None Dermatologic History: Reports: None - Infectious Disease History Infectious Disease History: Reports: Chicken Pox - Past Surgical History Head Surgeries/Procedures: Reports: None HEENT Surgical History: Reports: Eye Surgery Other HEENT Surgeries/Procedures: excision of mandibular abscess Cardiovascular Surgical History: Reports: None Respiratory Surgical History: Reports: None GI Surgical History: Reports: Cholecystectomy Female Surgical History: Reports: Section Endocrine Surgical History: Reports: None Neurological Surgical History: Reports: None Musculoskeletal Surgical History: Reports: None Oncologic Surgical History: Reports: None Dermatological Surgical History: Reports: None Social & Family History - Family History Family Medical History: Noncontributory HEENT: Reports: None Cardiac: Reports: [place] Respiratory: Reports: COPD GI: Reports: None : Reports: None OBGYN: Reports: Musculoskeletal: Reports: Arthritis Neurological: Reports: CVA, Migraines, Seizure Psychiatric: Reports: None Endocrine/Metabolic: Reports: Diabetes, type II Hematologic: Reports: None Immunologic: Reports: None Dermatologic: Reports: None Oncologic: Reports: None - Tobacco Use Smoking Status *Q: Current Every Day Smoker Years of Tobacco use: 19 Packs/Tins Daily: 1 Used Tobacco, but Quit: No Second Hand Smoke Exposure: Yes - Caffeine Use Caffeine Use: Reports: Soda - Recreational Drug Use Recreational Drug Use: Yes Drug Use in Last 12 Months: Yes Recreational Drug Type: Reports: Marijuana/Hashish Recreational Drug Use Frequency: Not Used In Over 1 Month H&P Review of Systems - Review of Systems: Review Of Systems: See Below General: Reports: No Symptoms HEENT: Reports: No Symptoms Pulmonary: Reports: No Symptoms Cardiovascular: Reports: No Symptoms Gastrointestinal: Reports: No Symptoms Genitourinary: Reports: No Symptoms Musculoskeletal: Reports: No Symptoms Skin: Reports: No Symptoms Psychiatric: Reports: No Symptoms Neurological: Reports: No Symptoms Hematologic/Lymphatic: Reports: No Symptoms Immunologic: Reports: No Symptoms L&D Exam - Exam Exam: See Below - Vital Signs Weight: 94.347 kg - OB Specific Fundal Height In cm: 37 Contraction Intensity: Mild Movement: Active Heart Tones: Present Presentation: Vertex - Exam General: Alert, Oriented HEENT: PERRLA, Conjunctiva Clear, EACs Clear, EOMI, Hearing Intact, Mucosa Moist & [place], Nares Patent, Normal Nasal Septum, Posterior Pharynx Clear, TMs Clear Neck: Supple, Trachea Midline Lungs: Clear to Auscultation, Normal Respiratory Effort Cardiovascular: Regular Rate, Regular Rhythm GI/Abdominal Exam: Normal Bowel Sounds, Soft, Non-Tender, No Organomegaly, No Distention, No Abnormal Bruit, No Mass, Pelvis Stable Rectal Exam: Normal Exam, Normal Rectal Tone Genitourinary: Normal external exam, Normal bimanual exam, Normal speculum exam Back Exam: Normal Inspection, Full Range of Motion Extremities: Normal Inspection, Normal Range of Motion, Non-Tender, No Pedal Edema, Normal Capillary Refill Skin: Warm, Dry, Intact Neurological: Cranial Nerves Intact, Reflexes Equal Bilateral Psychiatric: Alert, Normal Affect, Normal Mood - Patient Data Lab Results Last 24 hrs: Laboratory Results - last 24 hr 06/30/19 06/30/19 Range/Units 06:12 06:12 WBC 13.58 H (4.0-11.0) K/uL RBC 3.76 L (4.30-5.90) M/uL Hgb 12.1 (12.0-16.0) g/dL Hct 36.1 (36.0-46.0) % MCV 96.0 (80.0-98.0) fL MCH 32.2 H (27.0-32.0) pg MCHC 33.5 (31.0-37.0) g/dL RDW Std Deviation 50.3 (28.0-62.0) fl RDW Coeff of Mihai 14 (11.0-15.0) % Plt Count 355 (150-400) K/uL MPV 9.80 (7.40-12.00) fL Nucleated RBC % 0.0 /100WBC Nucleated RBCs # 0 K/uL Blood Type A POSITIVE Antibody Screen NEGATIVE Result Diagrams: 06/30/19 06:12 Problem List Initiated/Reviewed/Updated: Yes Orders Last 24hrs: Active Orders 24 hr Category Date Time Status Patient Status [ADT] Routine ADT 06/30/19 08:49 Ordered Ambulate [RC] PER UNIT ROUTINE Care 06/30/19 08:49 Ordered Antiembolic Devices [RC] PER UNIT ROUTINE Care 06/30/19 08:50 Ordered Bradycardia-Neuroaxis [employer]am[employer] [RC] ROUTINE Care 06/30/19 08:40 Active Communication Order [RC] PER UNIT ROUTINE Care 06/30/19 08:49 Ordered Communication Order [RC] PER UNIT ROUTINE Care 06/30/19 08:49 Ordered Communication Order [RC] Per Unit Routine Care 06/30/19 08:49 Ordered Non Stress Test [RC] PER UNIT ROUTINE Care 06/30/19 05:44 Active Hypertension-Neuroaxis [employer] [RC] ROUTINE Care 06/30/19 08:40 Active Hypotension-Neuroaxis [employer] [RC] ROUTINE Care 06/30/19 08:40 Active May Shower [RC] ASDIRECTED Care 06/30/19 08:49 Ordered Notify Provider Vital Signs [RC] PRN Care 06/30/19 05:45 Active Oxygen Therapy [RC] PER UNIT ROUTINE Care 06/30/19 08:40 Active Procedure Site Prep Instruct [RC] ASDIRECTED Care 06/30/19 05:44 Active RT Incentive Spirometry [RC] Q2HWA Care 06/30/19 08:49 Ordered Up ad Jovita [RC] ASDIRECTED Care 06/30/19 05:44 Active Verify Patient Consent Obtain [RC] ASDIRECTED Care 06/30/19 05:44 Active Vital Signs [RC] PER UNIT ROUTINE Care 06/30/19 05:44 Active Vital Signs [RC] PER UNIT ROUTINE Care 06/30/19 08:49 Ordered Vital Signs [RC] Q1H Care 06/30/19 08:40 Active HEMOGLOBIN/HEMATOCRIT,HH [HEME] Timed Lab 07/01/19 05:11 Ordered Acetaminophen/oxyCODONE [Percocet 325-5 MG] Med 06/30/19 08:40 Active 1 tab PO ONETIME PRN Acetaminophen/oxyCODONE [Percocet 325-5 MG] Med 06/30/19 08:49 Ordered 1 tab PO Q4H PRN Acetaminophen/oxyCODONE [Percocet 325-5 MG] Med 06/30/19 08:49 Ordered 2 tab PO Q4H PRN Bisacodyl [Dulcolax] Med 06/30/19 08:49 Ordered 10 mg RECTAL ONETIME PRN Docusate Sodium [Colace] Med 06/30/19 09:00 Ordered 100 mg PO BID Ibuprofen [Motrin] Med 06/30/19 08:49 Ordered 800 mg PO Q8H PRN Ketorolac [Toradol] Med 06/30/19 09:00 Ordered 30 mg IVPUSH Q6H Lactated Ringers @ 125 MLS/HR(1000ml) Med 06/30/19 09:00 Ordered Lactated Ringers [Ringers, Lactated] 1,000 ml IV ASDIRECTED Lactated Ringers [Ringers, Lactated] 1,000 ml Med 06/30/19 05:45 Active IV BOLUS Lanolin [Lansinoh HPA] Med 06/30/19 08:49 Ordered See Dose Instructions TOP ASDIRECTED PRN Nalbuphine [Nubain] Med 06/30/19 08:40 Active 2.5 mg IVPUSH Q3H PRN Ondansetron [Zofran] Med 06/30/19 08:49 Ordered 4 mg IVPUSH Q4H PRN Oxytocin/0.9 % Sodium Chloride [Oxytocin 30 Unit/500 ML Med 06/30/19 05:45 Active -NS] 30 unit in 500 ml IV TITRATE Sodium Chloride 0.9% [Normal Saline] Med 06/30/19 05:44 Active 10 ml IV ASDIRECTED PRN Sodium Chloride 0.9% [Saline Flush] Med 06/30/19 05:44 Active 10 ml FLUSH ASDIRECTED PRN Sodium Chloride 0.9% [Saline Flush] Med 06/30/19 05:44 Active 2.5 ml FLUSH ASDIRECTED PRN diphenhydrAMINE [Benadryl] Med 06/30/19 08:49 Ordered 25 mg IVPUSH Q6H PRN fentaNYL [Sublimaze] Med 06/30/19 08:40 Active 50 mcg IVPUSH Q5M PRN AN Neuroaxis Duramorph Precaution Reflex [OM.PC] PER Ot 06/30/19 08:45 Ordered UNIT ROUTINE AN Neuroaxis Duramorph Precaution Reflex [OM.PC] PER Ot 07/01/19 08:45 Ordered UNIT ROUTINE Assess Lochia [WOMSER] Per Unit Routine Ot 06/30/19 08:49 Ordered Assess Uterine Involution [WOMSER] Per Unit Routine Ot 06/30/19 08:49 Ordered Breast Pump [WOMSER] Per Unit Routine Ot 06/30/19 08:49 Ordered Peripheral IV Discontinue [OM.PC] Routine Ot 06/30/19 08:49 Ordered Peripheral IV Insertion Adult [OM.PC] Routine Ot 06/30/19 05:44 Ordered Schedule Procedure [COMM] Per Unit Routine Oth 06/30/19 05:44 Ordered Sequential Compression Device [OM.PC] Per Unit Routine Ot 06/30/19 08:49 Ordered Resuscitation Status Routine Resus Stat 06/30/19 05:44 Ordered Medication Orders Fentanyl (Sublimaze) 50 mcg IVPUSH Q5M PRN PRN Reason: Pain (severe 7-10) Stop: 07/01/19 08:42 Lactated Ringer's (Ringers, Lactated) 1,000 mls @ 500 mls/hr IV BOLUS PONCE Last Admin: 06/30/19 08:04 Dose: 999 mls/hr Infusion: 06/30/19 08:04 Dose: 999 mls/hr Admin: 06/30/19 07:32 Dose: 999 mls/hr Infusion: 06/30/19 07:32 Dose: 999 mls/hr Admin: 06/30/19 06:53 Dose: 999 mls/hr Oxytocin/Sodium Chloride (Oxytocin 30 Unit/500 Ml-Ns) 30 unit in 500 mls @ 250 mls/hr IV TITRATE PONCE Nalbuphine HCl (Nubain) 2.5 mg IVPUSH Q3H PRN PRN Reason: Pruritis Stop: 07/01/19 08:42 Oxycodone/Acetaminophen (Percocet 325-5 Mg) 1 tab PO ONETIME PRN PRN Reason: Pain (moderate 4-6) Sodium Chloride (Saline Flush) 10 ml FLUSH ASDIRECTED PRN PRN Reason: Keep Vein Open Sodium Chloride (Saline Flush) 2.5 ml FLUSH ASDIRECTED PRN PRN Reason: Keep Vein Open Sodium Chloride (Normal Saline) 10 ml IV ASDIRECTED PRN PRN Reason: IV Use Assessment/Plan Comment:: IUP 39 wks admitted for elective repeat C/section
--- NOTE | 2019-06-30 08:54 | PCM.OPNOTE ---
- General Post-Op/Procedure Note Date of Surgery/Procedure: 06/30/19 Operative Procedure(s): Repeat C/section. Pre Op Diagnosis: IUP39 wks previous C/section. Post-Op Diagnosis: Same Anesthesia Technique: Spinal Primary Surgeon: David MEANSL in mLs: 700 Complications: None Condition: Good
[2019-06-30] MEDS: Ketorolac 30 MG/ML SDV IVPUSH SCH ×3 (09:00→22:09)
[2019-06-30] MEDS ORDERED: Lactated Ringers 1,000 ML IV SCH (09:00)
--- NOTE | 2019-06-30 09:48 | PCM.POSTAN ---
POST ANESTHESIA ASSESSMENT - MENTAL STATUS Mental Status: Alert - VITAL SIGNS Vital Signs: Last Vital Signs Temp 36.8 C 06/30/19 09:06 Pulse 104 H 06/30/19 09:36 Resp 17 06/30/19 09:36 BP 100/54 L 06/30/19 09:36 Pulse Ox 97 06/30/19 09:36 - RESPIRATORY Respiratory Status: Respiratory Rate WNL - CARDIOVASCULAR CV Status: Pulse Rate WNL - GASTROINTESTINAL GI Status: No Symptoms - POST OP HYDRATION Hydration Status: Adequate & Stable
[2019-06-30] MEDS: Docusate Sodium 100 MG Cap PO SCH ×2 (11:02→20:50)
--- NOTE | 2019-06-30 13:56 | OR ---
SURGEON: David Mcnally MD DATE OF PROCEDURE: PREOPERATIVE DIAGNOSES: Intrauterine at 39 weeks, previous section x3. OPERATION PERFORMED: Repeat section. PRIMARY SURGEON: David Mcnally MD. TECHNICAL WRITING LEAD/MGR: Romi Bonilla. ANESTHESIA: Spinal. and Dr. Patterson. ESTIMATED BLOOD LOSS: 700 mL. COMPLICATIONS: None. FINDINGS: Male fetus. score reported to be 8 and 9. Normal uterus, tubes, and ovary. The weight is not available at the time of the dictation. INDICATION FOR SURGERY: This patient is 39 weeks. She had three previous section. She is admitted for elective repeat section. PROCEDURE IN DETAIL: The patient was brought to the OR, properly identified, and after adequate level of spinal anesthesia with a Jaramillo catheter in the bladder, the patient was prepped and draped in sterile fashion as usual. Low transverse Pfannenstiel skin incision through the old scar was done. [place]'s fascia and rectus fascia were opened in direction of the incision. The two recti muscles were and peritoneal cavity was entered. Bladder flap was raised in the usual manner, pushing the bladder away from the lower uterine segment. Low transverse uterine incision extended manually with the hand. The fetus was in a vertex position and delivered without any problem, cried immediately. score reported to be 8 and 9. The weight is not available. The placenta delivered spontaneous, complete, and intact and then repair of the lower uterine segment done with 2-0 Vicryl continuous interlocking in 2 layers and then the peritoneal cavity evacuated completely from all blood and blood clot and closed with 3-0 Vicryl continuous. The rectus fascia was closed with #1 PDS single strand continuous, [place]'s fascia with 3-0 Vicryl continuous. The skin closed with 3-0 Vicryl on a Jt needle in subcuticular fashion and Dermabond. Instrument and sponge counts were correct. The patient tolerated the procedure well and went to recovery room in stable general condition. ALTAGRACIA / LYNDSAY /[id number]
[2019-06-30] MEDS ORDERED: Nicotine 21 MG/24 Hr Patch TRDERM ONE (16:08)
[2019-06-30] MEDS: Acetaminophen/oxyCODONE 325-5 MG Tab PO PRN (23:23)
[2019-07-01] MEDS: Ketorolac 30 MG/ML SDV IVPUSH SCH (04:12)
[2019-07-01] MEDS: Acetaminophen/oxyCODONE 325-5 MG Tab PO PRN (04:12)
--- NOTE | 2019-07-01 07:43 | PCM48HPAN ---
Post Anesthesia Note - EVALUATION WITHIN 48HRS OF ANESTHETIC Vital Signs in Normal Range: Yes Patient Participated in Evaluation: Yes Respiratory Function Stable: Yes Airway Patent: Yes Cardiovascular Function Stable: Yes Hydration Status Stable: Yes Pain Control Satisfactory: Yes Nausea and Vomiting Control Satisfactory: Yes Mental Status Recovered: Yes Vital Signs: Last Vital Signs Temp 36.6 C 07/01/19 03:00 Pulse 91 07/01/19 07:00 Resp 15 07/01/19 07:00 BP 123/77 07/01/19 03:00 Pulse Ox 93 L 07/01/19 07:00
[2019-07-01] MEDS: Docusate Sodium 100 MG Cap PO SCH (08:14)
--- NOTE | 2019-07-01 09:44 | PCM.DCSUM1 ---
Discharge Summary - Hospital Course Free Text/Narrative:: Discharge home with infant. Follow up in 1 week for incision check and 6 weeks for . Diagnosis: Stroke: No Modified [place] Scale: No Symptoms at All Modified [place] Scale Score: 0 - Discharge Data Discharge Date: 07/01/19 Discharge Disposition: Home, Self-Care 01 Condition: Good - Referral to Home Health Primary Care Physician: PCP None - Discharge Diagnosis/Problem(s) (1) delivery delivered SNOMED Code(s): 759110661 ICD Code: O82 - ENCOUNTER FOR DELIVERY WITHOUT INDICATION Status: Acute Priority: High Current Visit: Yes - Patient Summary/Data Operative Procedure(s) Performed: Repeat C/section. - Patient Instructions Diet: Heart Healthy Diet Activity: As Tolerated, No Strenuous Activities, Rest and Relax Today Driving: Do Not Drive Showering/Bathing: May Shower Wound/Incision Care: Keep Operative Site/Wound Site Clean and Dry Notify Provider of: Fever, Increased Pain, Swelling and Redness, Drainage, Nausea and/or Vomiting Other/Special Instructions: Discharge home with infant. Follow up in 1 week for incision check and 6 weeks for . - Discharge Plan *PRESCRIPTION DRUG MONITORING PROGRAM REVIEWED*: Not Applicable *COPY OF PRESCRIPTION DRUG MONITORING REPORT IN PATIENT REYNALDO: Not Applicable Prescriptions/Med Rec: Acetaminophen/oxyCODONE [Percocet 325-5 MG] 1 - 2 tab PO ONETIME PRN #30 tablet PRN Reason: Pain (Moderate 4-6) Ibuprofen [Motrin] 800 mg PO Q8H PRN #90 tablet PRN Reason: mild pain or fever Home Medications: Home Meds #103/Iron Fumarate/Fa [ ] 1 tab PO DAILY 02/13/19 [ History] Acetaminophen/oxyCODONE [Percocet 325-5 MG] 1 - 2 tab PO ONETIME PRN #30 tablet 07/01/19 [Rx] Ibuprofen [Motrin] 800 mg PO Q8H PRN #90 tablet 07/01/19 [Rx] Patient Handouts: Delivery, Care After Referrals: [facility] [Outside] David Mcnally MD [Physician] - (2 week appointment July 14 @ 1045AM w/ Dr. Mcnally 6 week appointment August 11 @ 1045AM w/ Dr. Mcnally) - Discharge Summary/Plan Comment DC Time >30 min.: Yes - General Info Date of Service: 07/01/19 Admission Dx/Problem (Free Text: Patient Status Order with Admit Dx/Problem 06/30/19 05:44 Patient Status [ADT] Routine 06/30/19 08:49 Patient Status [ADT] Routine Admission Diagnosis/Problem Admission Diagnosis/Problem Functional Status: Reports: Pain Controlled, Tolerating Diet, Ambulating - Review of Systems General: Reports: No Symptoms HEENT: Reports: No Symptoms Pulmonary: Reports: No Symptoms Cardiovascular: Reports: No Symptoms Gastrointestinal: Reports: No Symptoms Genitourinary: Reports: No Symptoms Musculoskeletal: Reports: No Symptoms Skin: Reports: No Symptoms Neurological: Reports: No Symptoms Psychiatric: Reports: No Symptoms - Patient Data Vitals - Most Recent: Last Vital Signs Temp 36.4 C 07/01/19 08:08 Pulse 83 07/01/19 08:08 Resp 17 07/01/19 08:08 BP 115/62 07/01/19 08:08 Pulse Ox 95 07/01/19 08:08 Weight - Most Recent: 94.347 kg I&O - Last 24 hours: Intake & Output 06/30/19 07/01/19 07/01/19 22:59 06:59 14:59 Output Total 1450 300 Balance -1450 -300 Lab Results - Last 24 hrs: Laboratory Results - last 24 hr 07/01/19 Range/Units 05:35 Hgb 10.1 L (12.0-16.0) g/dL Hct 30.7 L (36.0-46.0) % Med Orders - Current: Current Medications Bisacodyl (Dulcolax) 10 mg RECTAL ONETIME PRN PRN Reason: Constipation Diphenhydramine HCl (Benadryl) 25 mg IVPUSH Q6H PRN PRN Reason: Itching or Nausea Docusate Sodium (Colace) 100 mg PO BID [facility] Last Admin: 07/01/19 08:14 Dose: 100 mg Emollient Ointment (Lansinoh Hpa) 0 gm TOP ASDIRECTED PRN PRN Reason: Sore Nipples Lactated Ringer's (Ringers, Lactated) 1,000 mls @ 500 mls/hr IV BOLUS [facility] Last Admin: 06/30/19 08:04 Dose: 999 mls/hr Oxytocin/Sodium Chloride (Oxytocin 30 Unit/500 Ml-Ns) 30 unit in 500 mls @ 250 mls/hr IV TITRATE PONCE Lactated Ringer's (Ringers, Lactated) 1,000 mls @ 125 mls/hr IV ASDIRECTED PONCE Last Admin: 06/30/19 11:00 Dose: 125 mls/hr Ibuprofen (Motrin) 800 mg PO Q8H PRN PRN Reason: mild pain or fever Ondansetron HCl (Zofran) 4 mg IVPUSH Q4H PRN PRN Reason: Nausea/Vomiting Oxycodone/Acetaminophen (Percocet 325-5 Mg) 1 tab PO ONETIME PRN PRN Reason: Pain (moderate 4-6) Oxycodone/Acetaminophen (Percocet 325-5 Mg) 1 tab PO Q4H PRN PRN Reason: Pain (moderate 4-6) Last Admin: 07/01/19 04:12 Dose: 1 tab Oxycodone/Acetaminophen (Percocet 325-5 Mg) 2 tab PO Q4H PRN PRN Reason: Pain (moderate 4-6) Last Admin: 07/01/19 08:15 Dose: 2 tab Sodium Chloride (Saline Flush) 10 ml FLUSH ASDIRECTED PRN PRN Reason: Keep Vein Open Sodium Chloride (Saline Flush) 2.5 ml FLUSH ASDIRECTED PRN PRN Reason: Keep Vein Open Sodium Chloride (Normal Saline) 10 ml IV ASDIRECTED PRN PRN Reason: IV Use Discontinued Medications Cefazolin Sodium (Ancef) Confirm Administered Dose 2 gm .ROUTE .STK-MED ONE Stop: 06/30/19 07:59 Citric Acid/Sodium Citrate (Bicitra Solution) 30 ml PO ONETIME ONE Stop: 06/30/19 05:45 Last Admin: 06/30/19 08:03 Dose: 30 ml Citric Acid/Sodium Citrate (Bicitra Solution) Confirm Administered Dose 30 ml .ROUTE .STK-MED ONE Stop: 06/30/19 08:02 Fentanyl (Sublimaze) 50 mcg IVPUSH Q5M PRN PRN Reason: Pain (severe 7-10) Stop: 07/01/19 08:42 Cefazolin Sodium/Dextrose 2 gm (/ Premix) 50 mls @ 100 mls/hr IV ONETIME ONE Stop: 06/30/19 06:13 Sodium Chloride (Normal Saline) Confirm Administered Dose 20 mls @ as directed .ROUTE .STK-MED ONE Stop: 06/30/19 07:59 Ketorolac Tromethamine (Toradol) Confirm Administered Dose 30 mg .ROUTE .STK- MED ONE Stop: 06/30/19 07:07 Ketorolac Tromethamine (Toradol) 30 mg IVPUSH Q6H PONCE Stop: 07/01/19 09:01 Last Admin: 07/01/19 04:12 Dose: Not Given Lidocaine HCl (Xylocaine-Mpf 1%) Confirm Administered Dose 5 ml .ROUTE .STK-MED ONE Stop: 06/30/19 08:14 Lidocaine HCl (Xylocaine-Mpf 1%) Confirm Administered Dose 5 ml .ROUTE .STK-MED ONE Stop: 06/30/19 08:17 Morphine Sulfate (Duramorph Pf) Confirm Administered Dose 10 mg .ROUTE .STK-MED ONE Stop: 06/30/19 07:08 Nalbuphine HCl (Nubain) 2.5 mg IVPUSH Q3H PRN PRN Reason: Pruritis Stop: 07/01/19 08:42 Nicotine (Habitrol) 21 mg TRDERM ONETIME ONE Stop: 06/30/19 16:09 Last Admin: 06/30/19 16:20 Dose: 21 mg Octyl Cyanoacrylate (Dermabond Advance) Confirm Administered Dose 1 applic .ROUTE .STK-MED ONE Stop: 06/30/19 07:30 Ondansetron HCl (Zofran) Confirm Administered Dose 4 mg .ROUTE .STK-MED ONE Stop: 06/30/19 07:07 Phenylephrine HCl (Phenylephrine In Ns 100 Mcg/Ml) Confirm Administered Dose 1 mg .ROUTE .STK-MED ONE Stop: 06/30/19 07:07 - Exam General: Reports: Alert, Oriented, Cooperative, No Acute Distress Lungs: Reports: Normal Respiratory Effort GI/Abdominal Exam: Soft, Non-Tender (Female) Exam: Deferred, Vaginal Bleeding Rectal (Female) Exam: Deferred Back Exam: Reports: Normal Inspection, Full Range of Motion Extremities: Normal Inspection, Normal Range of Motion, Non-Tender, No Pedal Edema Skin: Reports: Warm, Dry, Intact Wound/Incisions: Reports: Healing Well, No Drainage Neurological: Reports: No New Focal Deficit, Normal Gait, Normal Speech, Normal Tone, Strength Equal Bilateral, Sensation Intact Psy/Mental Status: Reports: Alert, Normal Affect, Normal Mood
== END 2019-07-01 12:50 | disposition home or self-care (01) | DRG 788 ==
LOC: MW.OB 05:29
PROVIDERS: ADMIT Obstetrics & Gynecology; ATTEND Obstetrics & Gynecology
PROC: 10D00Z1 Extraction of Products of Conception, Low, Open Approach (ICD-10-PCS; principal; 2019-06-30)
DX: O34.211 Maternal care for low transverse scar from previous cesarean delivery (principal); Z37.0 Single live birth; O99.334 Smoking (tobacco) complicating childbirth; F17.200 Nicotine dependence, unspecified, uncomplicated; Z3A.39 39 weeks gestation of pregnancy; Z79.899 Other long term (current) drug therapy; Z88.1 Allergy status to other antibiotic agents; Z88.8 Allergy status to other drugs, medicaments and biological substances
CPT/HCPCS: 36415; 85014; 85018; 85027; 86850; 86900; 86901; A9270-GY; J0690; J1885; J2001; J2270; J2370; J2405; J7120

== ENCOUNTER 2021-02-13 05:41 | Inpatient (IN) | payer SELFPAY ==
[2021-02-13] MEDS ORDERED: Sodium Chloride 0.9% 10 ML SDV IV PRN (06:06)
[2021-02-13] MEDS ORDERED: Sodium Chloride 0.9% 10 ML Syringe FLUSH PRN (06:06)
[2021-02-13] MEDS ORDERED: Sodium Chloride 0.9% 2.5 ML Syringe FLUSH PRN (06:06)
[2021-02-13] MEDS ORDERED: Citric Acid/Sodium Citrate Solution 30 ML Cup PO ONE (06:06)
[2021-02-13] MEDS ORDERED: Oxytocin/0.9 % Sodium Chloride 30 UNIT/500 ML BAG IV SCH (06:15)
[2021-02-13] MEDS: Lactated Ringers 1,000 ML IV SCH ×3 (06:15→17:10)
[2021-02-13] MEDS ORDERED: Morphine PF 10 MG/10 ML SDV ONE (07:22)
[2021-02-13] MEDS ORDERED: Oxytocin 10 Units/1 ML SDV ONE (07:23)
[2021-02-13] MEDS ORDERED: Octyl 2-Cyanoacrylate 1 Tube ONE (07:25)
[2021-02-13] MEDS ORDERED: Sodium Chloride 0.9% 20 ML ONE (07:32)
[2021-02-13] MEDS ORDERED: ceFAZolin 1 GM Vial ONE (07:32)
--- NOTE | 2021-02-13 07:50 | PCM.PREANE ---
Preanesthetic Assessment - Procedure Proposed Procedure: c section - Anesthesia/Transfusion/Family Hx Anesthesia History: Prior Anesthesia Without Reaction Family History of Anesthesia Reaction: No Transfusion History: No Prior Transfusion(s) - Review of Systems General: No Symptoms Pulmonary: No Symptoms Cardiovascular: No Symptoms Gastrointestinal: No Symptoms Neurological: No Symptoms Other: Reports: None - Physical Assessment NPO Status Date: 02/13/21 NPO Status Time: 00:00 Height: 5 ft 8 in Weight: 87.09 kg ASA Class: 2 Mental Status: Alert & Oriented x3 Airway Class: Mallampati = 1 Dentition: Reports: Normal Dentition ROM/Head Extension: Full Lungs: Clear to Auscultation, Normal Respiratory Effort Cardiovascular: Regular Rate, Regular Rhythm Other: reports a sore throat this morning - Lab Values: Laboratory Last Values WBC 9.99 K/uL (4.0-11.0) 02/13/21 06:23 RBC 3.72 M/uL (4.30-5.90) L 02/13/21 06:23 Hgb 11.7 g/dL (12.0-16.0) L 02/13/21 06:23 Hct 34.2 % (36.0-46.0) L 02/13/21 06:23 MCV 91.9 fL (80.0-98.0) 02/13/21 06:23 MCH 31.5 pg (27.0-32.0) 02/13/21 06:23 MCHC 34.2 g/dL (31.0-37.0) 02/13/21 06:23 RDW Std Deviation 45.4 fl (28.0-62.0) 02/13/21 06:23 RDW Coeff of Mihai 14 % (11.0-15.0) 02/13/21 06:23 Plt Count 281 K/uL (150-400) 02/13/21 06:23 MPV 9.30 fL (7.40-12.00) 02/13/21 06:23 Nucleated RBC % 0.0 /100WBC 02/13/21 06:23 Nucleated RBCs # 0 K/uL 02/13/21 06:23 Blood Type A POSITIVE 02/13/21 06:18 Antibody Screen NEGATIVE 02/13/21 06:18 - Allergies Allergies/Adverse Reactions: Allergies Allergy/AdvReac Type Severity Reaction Status Date / Time amoxicillin Allergy Hives Verified 02/07/21 13:48 tetrahydrozoline Allergy Itching Verified 02/07/21 13:48 [From Visine] - Anesthesia Plan Pre-Op Medication Ordered: None - Acknowledgements Anesthesia Type Planned: Spinal Pt an Appropriate Candidate for the Planned Anesthesia: Yes Alternatives and Risks of Anesthesia Discussed w Pt/Guardian: Yes Pt/Guardian Understands and Agrees with Anesthesia Plan: Yes PreAnesthesia Questionnaire HEENT History: Reports: Retinal Detachment Other HEENT History: wears glasses Cardiovascular History: Reports: Other (See Below) Other Cardiovascular History: murmur as a Other Respiratory History: smoker Gastrointestinal History: Reports: None Genitourinary History: Reports: None 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: , 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 Musculoskeletal History: Reports: Fracture Other Musculoskeletal History: hx of fx foot as a young child Neurological History: Reports: Migraines Other Neuro History: migraines in highschool Psychiatric History: Reports: None Endocrine/Metabolic History: Reports: None Hematologic History: Reports: None Immunologic History: Reports: None Oncologic (Cancer) History: Reports: None Dermatologic History: Reports: None - Infectious Disease History Infectious Disease History: Reports: Chicken Pox - Past Surgical History Head Surgeries/Procedures: Reports: None HEENT Surgical History: Reports: Eye Surgery Other HEENT Surgeries/Procedures: excision of mandibular abscess Cardiovascular Surgical History: Reports: None Respiratory Surgical History: Reports: None GI Surgical History: Reports: Cholecystectomy Female Surgical History: Reports: Section Other Female Surgeries/Procedures: previous C-Sections x4 Endocrine Surgical History: Reports: None Neurological Surgical History: Reports: None Musculoskeletal Surgical History: Reports: None Oncologic Surgical History: Reports: None Dermatological Surgical History: Reports: None - SUBSTANCE USE Tobacco Use Status *Q: Former Tobacco User Tobacco Use Within Last Twelve Months: Cigarettes Second Hand Smoke Exposure: Yes Recreational Drug Use History: Yes Recreational Drug Type: Reports: Marijuana/Hashish - HOME MEDS Home Medications: Home Meds #103/Iron Fumarate/Fa [ ] 1 tab PO DAILY 02/13/19 [History] - CURRENT (IN HOUSE) MEDS Current Meds: Current Medications Oxytocin/Sodium Chloride (Oxytocin 30 Unit/500 Ml-Ns) 30 unit in 500 mls @ 250 mls/hr IV TITRATE PONCE Lactated Ringer's (Ringers, Lactated) 1,000 mls @ 500 mls/hr IV BOLUS PONCE Sodium Chloride (Sodium Chloride 0.9% 10 Ml Syringe) 10 ml FLUSH ASDIRECTED PRN PRN Reason: Keep Vein Open Sodium Chloride (Sodium Chloride 0.9% 2.5 Ml Syringe) 2.5 ml FLUSH ASDIRECTED PRN PRN Reason: Keep Vein Open Sodium Chloride (Sodium Chloride 0.9% 10 Ml Sdv) 10 ml IV ASDIRECTED PRN PRN Reason: IV Use Discontinued Medications Cefazolin Sodium (Cefazolin 1 Gm Vial) Confirm Administered Dose 2 gm .ROUTE .STK-MED ONE Stop: 02/13/21 07:33 Citric Acid/Sodium Citrate (Citric Acid/Sodium Citrate Solution 30 Ml Cup) 30 m l PO ONETIME ONE Stop: 02/13/21 06:07 Sodium Chloride (Normal Saline) Confirm Administered Dose 20 mls @ as directed .ROUTE .STK-MED ONE Stop: 02/13/21 07:33 Morphine Sulfate (Morphine Pf 10 Mg/10 Ml Sdv) Confirm Administered Dose 10 mg .ROUTE .STK-MED ONE Stop: 02/13/21 07:23 Octyl Cyanoacrylate (Octyl 2-Cyanoacrylate 1 Tube) Confirm Administered Dose 1 applic .ROUTE .STK-MED ONE Stop: 02/13/21 07:26 Oxytocin (Oxytocin 10 Units/1 Ml Sdv) Confirm Administered Dose 20 unit .ROUTE .STK-MED ONE Stop: 02/13/21 07:24
[2021-02-13] MEDS ORDERED: Clindamycin Phosphate in D5W 600 MG in Premix Bag 1 BAG IV ONE ×2 (08:00)
--- NOTE | 2021-02-13 08:01 | PCM.LDHP ---
L&D History of Present Illness - General Date of Service: 02/13/21 Admit Problem/Dx: Patient Status Order with Admit Dx/Problem 02/13/21 06:06 Patient Status [ADT] Routine Admission Diagnosis/Problem Admission Diagnosis/Problem Source of Information: Patient History Limitations: Reports: No Limitations - History of Present Illness Introduction:: 35yo @ 38w5d here for repeat . Patient had 4 prior C-sections. care was otherwise unremarkable. A+, RI, RPR neg, HBsAg neg, HIV neg, GC/CHlam neg, GBS neg - Related Data Allergies/Adverse Reactions: Allergies Allergy/AdvReac Type Severity Reaction Status Date / Time amoxicillin Allergy Hives Verified 02/07/21 13:48 tetrahydrozoline Allergy Itching Verified 02/07/21 13:48 [From Visine] Home Medications: Home Meds #103/Iron Fumarate/Fa [ ] 1 tab PO DAILY 02/13/19 [History] Past Medical History HEENT History: Reports: Retinal Detachment Other HEENT History: wears glasses Cardiovascular History: Reports: Other (See Below) Other Cardiovascular History: murmur as a infant Respiratory History: Reports: None Gastrointestinal History: Reports: None Genitourinary History: Reports: None 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: , 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 Musculoskeletal History: Reports: Fracture Other Musculoskeletal History: hx of fx foot as a young child Neurological History: Reports: Migraines Other Neuro History: migraines in highschool Psychiatric History: Reports: None Endocrine/Metabolic History: Reports: None Hematologic History: Reports: None Immunologic History: Reports: None Oncologic (Cancer) History: Reports: None Dermatologic History: Reports: None - Infectious Disease History Infectious Disease History: Reports: Chicken Pox - Past Surgical History Head Surgeries/Procedures: Reports: None HEENT Surgical History: Reports: Eye Surgery Other HEENT Surgeries/Procedures: excision of mandibular abscess Cardiovascular Surgical History: Reports: None Respiratory Surgical History: Reports: None GI Surgical History: Reports: Cholecystectomy Female Surgical History: Reports: Section Other Female Surgeries/Procedures: previous C-Sections x4 Endocrine Surgical History: Reports: None Neurological Surgical History: Reports: None Musculoskeletal Surgical History: Reports: None Oncologic Surgical History: Reports: None Dermatological Surgical History: Reports: None Social & Family History - Family History Family Medical History: No Pertinent Family History HEENT: Reports: None Cardiac: Reports: [place] Respiratory: Reports: COPD GI: Reports: None : Reports: None OBGYN: Reports: Musculoskeletal: Reports: Arthritis Neurological: Reports: CVA, Migraines, Seizure Psychiatric: Reports: None Endocrine/Metabolic: Reports: Diabetes, type II Hematologic: Reports: None Immunologic: Reports: None Dermatologic: Reports: None Oncologic: Reports: None - Tobacco Use Tobacco Use Status *Q: Former Tobacco User Years of Tobacco use: 20 Packs/Tins Daily: 0.5 Used Tobacco, but Quit: No Second Hand Smoke Exposure: Yes - Caffeine Use Caffeine Use: Reports: None - Recreational Drug Use Recreational Drug Use: Yes Drug Use in Last 12 Months: No Recreational Drug Type: Reports: Marijuana/Hashish H&P Review of Systems - Review of Systems: Review Of Systems: See Below General: Reports: No Symptoms HEENT: Reports: No Symptoms Pulmonary: Reports: No Symptoms Cardiovascular: Reports: No Symptoms Gastrointestinal: Reports: No Symptoms Genitourinary: Reports: No Symptoms Musculoskeletal: Reports: No Symptoms Skin: Reports: No Symptoms Psychiatric: Reports: No Symptoms Neurological: Reports: No Symptoms Hematologic/Lymphatic: Reports: No Symptoms Immunologic: Reports: No Symptoms L&D Exam - Exam Exam: See Below - Vital Signs Weight: 87.09 kg - OB Specific Estimated Weight: 7 - Exam General: Alert, Oriented HEENT: Conjunctiva Clear Lungs: Normal Respiratory Effort Cardiovascular: Regular Rate GI/Abdominal Exam: Soft, Non-Tender Extremities: Normal Inspection Skin: Warm Psychiatric: Alert, Normal Affect, Normal Mood - Patient Data Lab Results Last 24 hrs: Laboratory Results - last 24 hr 02/13/21 02/13/21 Range/Units 06:18 06:23 WBC 9.99 (4.0-11.0) K/uL RBC 3.72 L (4.30-5.90) M/uL Hgb 11.7 L (12.0-16.0) g/dL Hct 34.2 L (36.0-46.0) % MCV 91.9 (80.0-98.0) fL MCH 31.5 (27.0-32.0) pg MCHC 34.2 (31.0-37.0) g/dL RDW Std Deviation 45.4 (28.0-62.0) fl RDW Coeff of Mihai 14 (11.0-15.0) % Plt Count 281 (150-400) K/uL MPV 9.30 (7.40-12.00) fL Nucleated RBC % 0.0 /100WBC Nucleated RBCs # 0 K/uL Blood Type A POSITIVE Antibody Screen NEGATIVE Result Diagrams: 02/13/21 06:23 - Problem List (1) Term SNOMED Code(s): 68580884 ICD Code: Z34.90 - ENCNTR FOR SUPRVSN OF NORMAL , UNSP, UNSP TR IMESTER Status: Acute Priority: High Current Visit: Yes (2) History of SNOMED Code(s): 752030335 ICD Code: Z98.891 - HISTORY OF UTERINE SCAR FROM PREVIOUS SURGERY Status: Acute Priority: High Current Visit: Yes Problem List Initiated/Reviewed/Updated: Yes Orders Last 24hrs: Active Orders 24 hr Category Date Time Status Patient Status [ADT] Routine ADT 02/13/21 06:06 Active Non Stress Test [RC] PER UNIT ROUTINE Care 02/13/21 06:06 Active Notify Provider Vital Signs [RC] PRN Care 02/13/21 06:08 Active Procedure Site Prep Instruct [RC] ASDIRECTED Care 02/13/21 06:06 Active Up ad Jovita [RC] ASDIRECTED Care 02/13/21 06:06 Active Verify Patient Consent Obtain [RC] ASDIRECTED Care 02/13/21 06:06 Active Vital Signs [RC] PER UNIT ROUTINE Care 02/13/21 06:06 Active RPR (SYPHILIS SERO) W/ RFLX [REF] Routine Lab 02/13/21 06:23 Received Lactated Ringers [Ringers, Lactated] 1,000 ml Med 02/13/21 06:15 Active IV BOLUS Oxytocin/0.9 % Sodium Chloride [Oxytocin 30 Unit/500 ML Med 02/13/21 06:15 Active -NS] 30 unit in 500 ml IV TITRATE Sodium Chloride 0.9% [Normal Saline] Med 02/13/21 06:06 Active 10 ml IV ASDIRECTED PRN Sodium Chloride 0.9% [Saline Flush] Med 02/13/21 06:06 Active 10 ml FLUSH ASDIRECTED PRN Sodium Chloride 0.9% [Saline Flush] Med 02/13/21 06:06 Active 2.5 ml FLUSH ASDIRECTED PRN Peripheral IV Insertion Adult [OM.PC] Routine Oth 02/13/21 06:06 Ordered Schedule Procedure [COMM] Per Unit Routine Oth 02/13/21 06:06 Ordered Resuscitation Status Routine Resus Stat 02/13/21 06:06 Ordered Medication Orders Oxytocin/Sodium Chloride (Oxytocin 30 Unit/500 Ml-Ns) 30 unit in 500 mls @ 250 mls/hr IV TITRATE PONCE Lactated Ringer's (Ringers, Lactated) 1,000 mls @ 500 mls/hr IV BOLUS PONCE Sodium Chloride (Sodium Chloride 0.9% 10 Ml Syringe) 10 ml FLUSH ASDIRECTED PRN PRN Reason: Keep Vein Open Sodium Chloride (Sodium Chloride 0.9% 2.5 Ml Syringe) 2.5 ml FLUSH ASDIRECTED PRN PRN Reason: Keep Vein Open Sodium Chloride (Sodium Chloride 0.9% 10 Ml Sdv) 10 ml IV ASDIRECTED PRN PRN Reason: IV Use Assessment/Plan Comment:: 35yo @ 38w5d here for repeat . H/o C-sections x4. Reactive strip. No concerns at this time. Allergic to amox, will give Clindamycin instead of Ancef. Risks and benefits discussed with patient.
[2021-02-13] MEDS ORDERED: Oxytocin 10 Units/1 ML SDV IM PRN (09:07)
[2021-02-13] MEDS ORDERED: Lanolin 100% Cream 7 GM Tube TOP PRN (09:07)
[2021-02-13] MEDS ORDERED: Acetaminophen/oxyCODONE 325-5 MG Tab PO PRN ×2 (09:07)
[2021-02-13] MEDS ORDERED: Tranexamic Acid 1,000 MG in Sodium Chloride 0.9% 100 ML IV PRN (09:07)
[2021-02-13] MEDS ORDERED: diphenhydrAMINE 50 MG/ML SDV IVPUSH PRN (09:07)
[2021-02-13] MEDS ORDERED: Misoprostol 200 MCG Tab RECTAL PRN (09:07)
[2021-02-13] MEDS ORDERED: Bisacodyl 10 MG Supp RECTAL PRN (09:07)
[2021-02-13] MEDS ORDERED: Methylergonovine 0.2 MG/1 ML Amp IM PRN (09:07)
[2021-02-13] MEDS ORDERED: Lactated Ringers 1,000 ML IV SCH (09:15)
[2021-02-13] MEDS ORDERED: Oxytocin/Lactated Ringers 30 UNIT/500 ML BAG IV SCH (09:15)
--- NOTE | 2021-02-13 09:18 | PCM.DEL ---
L & D Note - General Info Date of Service: 02/13/21 Mother's Due Date: 02/22/21 - Delivery Note Delivery Outcome: Livebirth Infant Delivery Method: Repeat Presentation: Vertex Nuchal Cord: None Anesthesia Type: Spinal Amniotic Fluid Description: Clear Placenta: Intact, Spontaneous Cord: 3 Vessels Estimated Blood Loss: 400 Resuscitation Needed: No Score 1 min: 9 Score 5 min: 9 Delivery Comments (Free Text/Narrative):: Delivery details: Male infant Weight: 7'2" : 9/9 EBL 400cc - General Info Date of Service: 02/13/21 Admission Dx/Problem (Free Text): Patient Status Order with Admit Dx/Problem 02/13/21 06:06 Patient Status [ADT] Routine Admission Diagnosis/Problem Admission Diagnosis/Problem Subjective Update: 35yo G5 now P3205 s/p uncomplicated RLTCS. Patient is doing well. In recovery room with baby at her side Functional Status: Reports: Pain Controlled - Review of Systems General: Reports: No Symptoms HEENT: Reports: No Symptoms Pulmonary: Reports: No Symptoms Cardiovascular: Reports: No Symptoms Gastrointestinal: Reports: No Symptoms Genitourinary: Reports: No Symptoms Musculoskeletal: Reports: No Symptoms Skin: Reports: No Symptoms Psychiatric: Reports: No Symptoms - Patient Data Weight - Most Recent: 87.09 kg I&O - Last 24 Hours: Intake & Output 02/12/21 02/13/21 02/13/21 22:59 06:59 14:59 Output Total 100 Balance -100 Lab Results Last 24 Hours: Laboratory Results - last 24 hr 02/13/21 02/13/21 Range/Units 06:18 06:23 WBC 9.99 (4.0-11.0) K/uL RBC 3.72 L (4.30-5.90) M/uL Hgb 11.7 L (12.0-16.0) g/dL Hct 34.2 L (36.0-46.0) % MCV 91.9 (80.0-98.0) fL MCH 31.5 (27.0-32.0) pg MCHC 34.2 (31.0-37.0) g/dL RDW Std Deviation 45.4 (28.0-62.0) fl RDW Coeff of Mihai 14 (11.0-15.0) % Plt Count 281 (150-400) K/uL MPV 9.30 (7.40-12.00) fL Nucleated RBC % 0.0 /100WBC Nucleated RBCs # 0 K/uL Blood Type A POSITIVE Antibody Screen NEGATIVE Med Orders - Current: Current Medications Oxytocin/Sodium Chloride (Oxytocin 30 Unit/500 Ml-Ns) 30 unit in 500 mls @ 250 mls/hr IV TITRATE PONCE Lactated Ringer's (Ringers, Lactated) 1,000 mls @ 500 mls/hr IV B[facility]US [facility] Last Admin: 02/13/21 07:30 Dose: 999 mls/hr Documented by: Sodium Chloride (Sodium Chloride 0.9% 10 Ml Syringe) 10 ml FLUSH ASDIRECTED PRN PRN Reason: Keep Vein Open Sodium Chloride (Sodium Chloride 0.9% 2.5 Ml Syringe) 2.5 ml FLUSH ASDIRECTED PRN PRN Reason: Keep Vein Open Sodium Chloride (Sodium Chloride 0.9% 10 Ml Sdv) 10 ml IV ASDIRECTED PRN PRN Reason: IV Use Discontinued Medications Cefazolin Sodium (Cefazolin 1 Gm Vial) Confirm Administered Dose 2 gm .ROUTE .STK-MED ONE Stop: 02/13/21 07:33 Citric Acid/Sodium Citrate (Citric Acid/Sodium Citrate Solution 30 Ml Cup) 30 ml PO ONETIME ONE Stop: 02/13/21 06:07 Sodium Chloride (Normal Saline) Confirm Administered Dose 20 mls @ as directed .ROUTE .STK-MED ONE Stop: 02/13/21 07:33 Clindamycin Phosphate 600 mg/ (Premix) 50 mls @ 100 mls/hr IV ONETIME ONE Stop: 02/13/21 08:29 Morphine Sulfate (Morphine Pf 10 Mg/10 Ml Sdv) Confirm Administered Dose 10 mg .ROUTE .STK-MED ONE Stop: 02/13/21 07:23 Octyl Cyanoacrylate (Octyl 2-Cyanoacrylate 1 Tube) Confirm Administered Dose 1 applic .ROUTE .STK-MED ONE Stop: 02/13/21 07:26 Oxytocin (Oxytocin 10 Units/1 Ml Sdv) Confirm Administered Dose 20 unit .ROUTE .STK-MED ONE Stop: 02/13/21 07:24 - Exam General: Alert, Oriented Lungs: Normal Respiratory Effort Cardiovascular: Regular Rate GI/Abdominal Exam: Soft Back Exam: Normal Inspection Extremities: Normal Inspection Psy/Mental Status: Alert, Normal Affect - Problem List & Annotations (1) Term SNOMED Code(s): 81137814 Code(s): Z34.90 - ENCNTR FOR SUPRVSN OF NORMAL , UNSP, UNSP TRIMESTER Status: Acute Priority: High Current Visit: Yes (2) History of SNOMED Code(s): 311239805 Code(s): Z98.891 - HISTORY OF UTERINE SCAR FROM PREVIOUS SURGERY Status: Acute Priority: High Current Visit: Yes - Problem List Review Problem List Initiated/Reviewed/Updated: Yes - My Orders Last 24 Hours: My Active Orders 02/13/21 09:07 Acetaminophen/oxyCODONE [Percocet 325-5 MG] 1 tab PO Q4H PRN Acetaminophen/oxyCODONE [Percocet 325-5 MG] 2 tab PO Q4H PRN Ibuprofen [Motrin] 800 mg PO Q8H PRN Lanolin [Lansinoh HPA] See Dose Instructions TOP ASDIRECTED PRN Methylergonovine [Methergine] 0.2 mg IM ONETIME PRN Ondansetron [Zofran] 4 mg IVPUSH Q4H PRN Oxytocin [Pitocin] 10 unit IM ASDIRECTED PRN Tranexamic Acid [Cyklokapron] 1,000 mg Sodium Chloride 0.9% [Normal Saline] 100 ml IV ONETIME bisacodyL [Dulcolax] 10 mg RECTAL ONETIME PRN diphenhydrAMINE [Benadryl] 25 mg IVPUSH Q6H PRN miSOPROStoL [Cytotec] 1,000 mcg RECTAL ONETIME PRN 02/13/21 09:09 Patient Status [ADT] Routine Ambulate [RC] PER UNIT ROUTINE Communication Order [RC] PER UNIT ROUTINE Communication Order [RC] PER UNIT ROUTINE Communication Order [RC] Per Unit Routine May Shower [RC] ASDIRECTED RT Incentive Spirometry [RC] Q2HWA Vital Signs [RC] PER UNIT ROUTINE Assess Lochia [WOMSER] Per Unit Routine Assess Uterine Involution [WOMSER] Per Unit Routine Breast Pump [WOMSER] Per Unit Routine Peripheral IV Discontinue [OM.PC] Routine Sequential Compression Device [OM.PC] Per Unit Routine 02/13/21 09:10 Antiembolic Devices [RC] PER UNIT ROUTINE 02/13/21 09:11 Notify Provider Intake and Out [RC] ASDIRECTED Notify Provider Vital Signs [RC] ASDIRECTED 02/13/21 09:15 Ketorolac [Toradol] 30 mg IVPUSH Q6H Lactated Ringers @ 125 MLS/HR(1000ml) Lactated Ringers [Ringers, Lactated] 1,000 ml IV ASDIRECTED Oxytocin/Lactated Ringers [Pitocin in LR 30 Units/500 ML] 30 unit in 500 ml IV TITRATE 02/13/21 21:00 Docusate Sodium [Colace] 100 mg PO BID 02/14/21 05:11 HEMOGLOBIN/HEMATOCRIT,HH [HEME] Timed - Plan Plan:: 35yo G5 now P3205 s/p uncomplicated RLTCS @ 38w5d Both Mom and baby are doing well, in the recovery room. P: Routine care
[2021-02-13] MEDS: Ketorolac 30 MG/ML SDV IVPUSH SCH ×3 (09:36→21:57)
--- NOTE | 2021-02-13 09:45 | PCM.POSTAN ---
POST ANESTHESIA ASSESSMENT - MENTAL STATUS Mental Status: Alert, Oriented - RESPIRATORY Respiratory Status: Respiratory Rate WNL, Airway Patent, O2 Saturation Stable - CARDIOVASCULAR CV Status: Pulse Rate WNL, Blood Pressure Stable - GASTROINTESTINAL GI Status: No Symptoms - PAIN Pain Score: 5 - POST OP HYDRATION Hydration Status: Adequate & Stable
[2021-02-13] MEDS: Ondansetron 4 MG/2 ML SDV IVPUSH PRN ×2 (13:05→18:27)
[2021-02-13] MEDS ORDERED: Nicotine 7 MG/24 Hr Patch TRDERM SCH (18:00)
[2021-02-13] MEDS ORDERED: Nicotine 21 MG/24 Hr Patch TRDERM ONE (20:30)
[2021-02-13] MEDS ORDERED: hydrOXYzine Pamoate 25 MG Cap PO ONE (20:31)
[2021-02-13] MEDS: Docusate Sodium 100 MG Cap PO SCH (21:57)
[2021-02-14] MEDS: Ketorolac 30 MG/ML SDV IVPUSH SCH ×2 (04:11→09:30)
[2021-02-14] MEDS: Docusate Sodium 100 MG Cap PO SCH (09:30)
--- NOTE | 2021-02-14 13:09 | PCM.DCSUM1 ---
Discharge Summary - Hospital Course Free Text/Narrative:: Isadora is a 35 yo currently PPD1 S/P planned repeat LTCS to term NBM. A pos, RI, GBS neg. Patient has no complaints or concerns at this time. Patient is bottle and well, resting comfortably in bed with in bassinet. Patient reports she is eating, voiding, ambulating independently and without difficulty. Patient denies any problems or concerns at this time except mild-moderate intermittent uterine cramping and surgical pain relieved with PO analgesia Patient reports small to moderate vaginal bleeding with no clots. Patient verbalizes her readiness to be discharged home today. Low transverse incision dressing clean, dry, intact. Diagnosis: Stroke: No - Discharge Data Discharge Date: 02/14/21 Discharge Disposition: Home, Self-Care 01 Condition: Good - Referral to Home Health Primary Care Physician: PCP None - Discharge Diagnosis/Problem(s) (1) Status post repeat low transverse section SNOMED Code(s): 625994652, 18297630, 518263448, 668947467, 901734623 ICD Code: Z98.891 - HISTORY OF UTERINE SCAR FROM PREVIOUS SURGERY Status: Acute Priority: High Current Visit: Yes (2) Lactating mother SNOMED Code(s): 599390287, 157308642 ICD Code: Z39.1 - ENCOUNTER FOR CARE AND EXAMINATION OF LACTATING MOTHER Status: Acute Priority: High Current Visit: Yes - Patient Instructions Diet: Usual Diet as Tolerated, Drink 8-10+ Glasses/Day Activity: As Tolerated, No Strenuous Activities, Rest and Relax Today Driving: May Drive Today Showering/Bathing: May Shower Showering/Bathing, Other: May sitz bathe for perineal comfort Wound/Incision Care: Keep Operative Site/Wound Site Clean and Dry, Change Dressing Daily Notify Provider of: Fever, Increased Pain, Swelling and Redness, Drainage, Nausea and/or Vomiting - Discharge Plan *PRESCRIPTION DRUG MONITORING PROGRAM REVIEWED*: No *COPY OF PRESCRIPTION DRUG MONITORING REPORT IN PATIENT REYNALDO: No Prescriptions/Med Rec: Docusate Sodium [Colace] 100 mg PO BID #60 cap Ibuprofen [Motrin] 800 mg PO Q8H PRN #90 tablet PRN Reason: mild pain or fever Acetaminophen/oxyCODONE [Percocet 325-5 MG] 1 - 2 tab PO Q6H PRN #30 tablet PRN Reason: Pain Home Medications: Home Meds #103/Iron Fumarate/Fa [ ] 1 tab PO DAILY 02/13/19 [History] Acetaminophen/oxyCODONE [Percocet 325-5 MG] 1 - 2 tab PO Q6H PRN #30 tablet 02/14/21 [Rx] Docusate Sodium [Colace] 100 mg PO BID #60 cap 02/14/21 [Rx] Ibuprofen [Motrin] 800 mg PO Q8H PRN #90 tablet 02/14/21 [Rx] Oxygen Therapy Mode: Room Air Patient Handouts: Baby Blues, Care After Delivery Referrals: David Mcnally MD [Physician] - 02/21/21 2:45 pm (Incision check.) Carine Can MD [Physician] - 03/28/21 1:00 pm (Six week check) - Discharge Summary/Plan Comment DC Time >30 min.: No Discharge Summary/Plan Comment: Warning S/Ss, when to call for help discussed. No questions. RTO in 1 week for incision check. RTO in 6 weeks for PPV. - General Info Date of Service: 02/14/21 Admission Dx/Problem (Free Text: Patient Status Order with Admit Dx/Problem 02/13/21 06:06 Patient Status [ADT] Routine Admission Diagnosis/Problem Admission Diagnosis/Problem Subjective Update: 35yo G5 now P3205 s/p uncomplicated RLTCS. Patient is doing well. In recovery room with baby at her side Functional Status: Reports: Pain Controlled, Tolerating Diet, Ambulating, Urinating - Review of Systems General: Reports: No Symptoms HEENT: Reports: No Symptoms Pulmonary: Reports: No Symptoms Cardiovascular: Reports: No Symptoms Gastrointestinal: Reports: No Symptoms Genitourinary: Reports: No Symptoms Musculoskeletal: Reports: No Symptoms Skin: Reports: No Symptoms Neurological: Reports: No Symptoms Psychiatric: Reports: No Symptoms - Patient Data Vitals - Most Recent: Last Vital Signs Temp 97.1 F 02/14/21 12:00 Pulse 78 02/14/21 12:00 Resp 20 02/14/21 12:00 BP 107/68 02/14/21 12:00 Pulse Ox 98 02/14/21 08:10 Weight - Most Recent: 192 lb I&O - Last 24 hours: Intake & Output 02/13/21 02/14/21 02/14/21 22:59 06:59 14:59 Intake Total 300 Output Total 200 800 Balance -200 -500 Lab Results - Last 24 hrs: Laboratory Results - last 24 hr 02/14/21 Range/Units 05:34 Hgb 10.4 L (12.0-16.0) g/dL Hct 30.4 L (36.0-46.0) % Med Orders - Current: Current Medications Bisacodyl (Bisacodyl 10 Mg Supp) 10 mg RECTAL ONETIME PRN PRN Reason: Constipation Diphenhydramine HCl (Diphenhydramine 50 Mg/Ml Sdv) 25 mg IVPUSH Q6H PRN PRN Reason: Itching or Nausea Docusate Sodium (Docusate Sodium 100 Mg Cap) 100 mg PO BID PONCE Last Admin: 02/14/21 09:30 Dose: 100 mg Documented by: Emollient Ointment (Lanolin 100% Cream 7 Gm Tube) 0 gm TOP ASDIRECTED PRN PRN Reason: Sore Nipples Oxytocin/Sodium Chloride (Oxytocin 30 Unit/500 Ml-Ns) 30 unit in 500 mls @ 250 mls/hr IV TITRATE PONCE Lactated Ringer's (Ringers, Lactated) 1,000 mls @ 500 mls/hr IV BOLUS [facility] Last Admin: 02/13/21 17:10 Dose: 999 mls/hr Documented by: Lactated Ringer's (Ringers, Lactated) 1,000 mls @ 125 mls/hr IV ASDIRECTED PONCE Last Infusion: 02/13/21 13:30 Dose: 150 mls/hr Documented by: Oxytocin/Lactated Ringer's (Pitocin In Lr 30 Units/500 Ml) 30 unit in 500 mls @ 2 mls/hr IV TITRATE PONCE; Protocol Tranexamic Acid 1,000 mg/ (Sodium Chloride) 110 mls @ 660 mls/hr IV ONETIME PRN PRN Reason: Bleeding Ibuprofen (Ibuprofen 800 Mg Tab) 800 mg PO Q8H PRN PRN Reason: mild pain or fever Methylergonovine Maleate (Methylergonovine 0.2 Mg/1 Ml Amp) 0.2 mg IM ONETIME PRN PRN Reason: Excessive Vaginal Bleeding Misoprostol (Misoprostol 200 Mcg Tab) 1,000 mcg RECTAL ONETIME PRN PRN Reason: excessive bleeding Nicotine (Nicotine 21 Mg/24 Hr Patch) 21 mg TRDERM ONETIME ONE Stop: 02/14/21 20:31 Ondansetron HCl (Ondansetron 4 Mg/2 Ml Sdv) 4 mg IVPUSH Q4H PRN PRN Reason: Nausea/Vomiting Last Admin: 02/13/21 18:27 Dose: 4 mg Documented by: Oxycodone/Acetaminophen (Acetaminophen/Oxycodone 325-5 Mg Tab) 1 tab PO Q4H PRN PRN Reason: Pain (moderate 4-6) Oxycodone/Acetaminophen (Acetaminophen/Oxycodone 325-5 Mg Tab) 2 tab PO Q4H PRN PRN Reason: Pain (moderate 4-6) Oxytocin (Oxytocin 10 Units/1 Ml Sdv) 10 unit IM ASDIRECTED PRN PRN Reason: Excessive Vaginal Bleeding Sodium Chloride (Sodium Chloride 0.9% 10 Ml Syringe) 10 ml FLUSH ASDIRECTED PRN PRN Reason: Keep Vein Open Sodium Chloride (Sodium Chloride 0.9% 2.5 Ml Syringe) 2.5 ml FLUSH ASDIRECTED PRN PRN Reason: Keep Vein Open Sodium Chloride (Sodium Chloride 0.9% 10 Ml Sdv) 10 ml IV ASDIRECTED PRN PRN Reason: IV Use Discontinued Medications Cefazolin Sodium (Cefazolin 1 Gm Vial) Confirm Administered Dose 2 gm .ROUTE .STK-MED ONE Stop: 02/13/21 07:33 Citric Acid/Sodium Citrate (Citric Acid/Sodium Citrate Solution 30 Ml Cup) 30 ml PO ONETIME ONE Stop: 02/13/21 06:07 Last Admin: 02/14/21 07:44 Dose: Not Given Documented by: Hydroxyzine Pamoate (Hydroxyzine Pamoate 25 Mg Cap) 50 mg PO ONETIME ONE Stop: 02/13/21 20:32 Last Admin: 02/13/21 20:51 Dose: 50 mg Documented by: Sodium Chloride (Normal Saline) Confirm Administered Dose 20 mls @ as directed .ROUTE .STK-MED ONE Stop: 02/13/21 07:33 Clindamycin Phosphate 600 mg/ (Premix) 50 mls @ 100 mls/hr IV ONETIME ONE Stop: 02/13/21 08:29 Last Admin: 02/14/21 07:46 Dose: Not Given Documented by: Ketorolac Tromethamine (Ketorolac 30 Mg/Ml Sdv) 30 mg IVPUSH Q6H [facility] Stop: 02/14/21 09:16 Last Admin: 02/14/21 09:30 Dose: 30 mg Documented by: Morphine Sulfate (Morphine Pf 10 Mg/10 Ml Sdv) Confirm Administered Dose 10 mg .ROUTE .STK-MED ONE Stop: 02/13/21 07:23 Nicotine (Nicotine 7 Mg/24 Hr Patch) 7 mg TRDERM DAILY PONCE Last Admin: 02/13/21 18:23 Dose: 7 mg Documented by: Nicotine (Nicotine 21 Mg/24 Hr Patch) 21 mg TRDERM ONETIME ONE Stop: 02/13/21 20:31 Last Admin: 02/13/21 20:50 Dose: 21 mg Documented by: Octyl Cyanoacrylate (Octyl 2-Cyanoacrylate 1 Tube) Confirm Administered Dose 1 applic .ROUTE .STK-MED ONE Stop: 02/13/21 07:26 Last Admin: 02/14/21 07:44 Dose: Not Given Documented by: Oxytocin (Oxytocin 10 Units/1 Ml Sdv) Confirm Administered Dose 20 unit .ROUTE .STK-MED ONE Stop: 02/13/21 07:24 - Exam General: Reports: Alert, Oriented, Cooperative, No Acute Distress HEENT: Reports: Pupils Equal, Mucous Membr. Moist/[place] Neck: Reports: Supple Lungs: Reports: Clear to Auscultation, Normal Respiratory Effort Cardiovascular: Reports: Regular Rate, Regular Rhythm GI/Abdominal Exam: Normal Bowel Sounds, Soft, Non-Tender, No Organomegaly, No Distention (Female) Exam: Normal External Exam, Normal Speculum Exam, Enlarged Uterus ( uterus, firm U-1), Vaginal Bleeding (Small to moderate rubra lochia, no clots.) Rectal (Female) Exam: Normal Exam, Normal Rectal Tone Back Exam: Reports: Normal Inspection, Full Range of Motion Extremities: Normal Inspection, Normal Range of Motion, Non-Tender, No Pedal Edema, Normal Capillary Refill Skin: Reports: Warm, Dry, Intact Wound/Incisions: Reports: Dressing Dry and Intact, No Drainage Neurological: Reports: No New Focal Deficit Psy/Mental Status: Reports: Alert, Normal Affect, Normal Mood
[2021-02-14] MEDS ORDERED: Ibuprofen 800 MG Tab PO PRN (15:00)
[2021-02-14] MEDS ORDERED: Nicotine 21 MG/24 Hr Patch TRDERM ONE (20:30)
--- NOTE | 2021-02-17 09:29 | OR ---
SURGEON: Carine Dorsey MD DATE OF PROCEDURE: 02/13/2021 INDICATION FOR SURGERY: Term , history of x4. PREOPERATIVE DIAGNOSIS: Term , history of x4. POSTOPERATIVE DIAGNOSIS: Term , history of x4. OPERATION: Repeat low transverse . PRIMARY SURGEON: Carine Dorsey MD. HAND BLOCKER: Dr. David Mcnally MD, and Alma Goldberg. ANESTHESIA: Spinal. ANESTHESIOLOGIST: Polo Ma. ESTIMATED BLOOD LOSS: 400 mL. URINE OUTPUT: Adequate. DRAIN AND PACK: Jaramillo catheter draining clear urine. SPECIMEN: None. FINDING: Male . Weight 7 pounds 2 ounces. score of 9 and 9. PLACENTA DELIVERY METHOD: Spontaneous. MATERNAL COMPLICATIONS: None. COMPLICATIONS: None. TECHNIQUE: Isadora Goodson was taken to the operating room. She was transferred to the operating table and place in the dorsal supine position with a leftward tilt. After adequate anesthesia was confirmed, she was prepped and draped in the usual sterile fashion. A time-out was completed with IV running and Jaramillo catheter draining. A Pfannenstiel skin incision was made. This incision was carried down with the Bovie cautery through the subcutaneous tissue to the underlying rectus fascia. The rectus fascia was incised in the midline and extended laterally with cephalocaudal traction. The underlying rectus muscles were dissected off bluntly and sharply. The rectus muscles were in the midline and the parietal peritoneum was opened. A self-retaining retractor was placed. The lower uterine segment was identified and a bladder flap was made in the lower uterine segment in a transverse fashion. The lower uterine segment was incised in a transverse fashion. The incision was extended laterally with cephalocaudal traction. The 's vertex was delivered atraumatically followed by the reminder of the . The cord was clamped and cut and the infant handed off to the pediatric staff. Blood was collected for possible cord gases. The placenta was then delivered spontaneously. The uterus was cleaned of all clots and debris. The uterine incision was reapproximated in a running locked stitch fashion utilizing 0 Vicryl, second running stitch imbricating the first layer was performed utilizing another 0 Vicryl. Hemostasis was excellent. Lower uterine segment was found to be very thin and difficulty to close the incision. The gutter was irrigated and cleared of all clots and debris. All operative sites were examined and noted to be hemostatic. The self-retaining retractor was removed. Subfascial layer was found to be hemostased. The peritoneum was closed with a running stitch fashion utilizing 3-0 Vicryl. The rectus fascia was reapproximated with a PDS in a running stitch fashion. The subcutaneous tissue was closed with 3-0 Vicryl in a running stitch fashion. Hemostasis was excellent. The skin was then closed with 4-0 Monocryl in a subcuticular fashion. All sponges, needle, and instrument count were correct x2 per the OR nursing staff. The patient was taken to the recovery room in a stable condition. Prior to surgery, patient had received clindamycin. HORACIO UMANA /[id number]
== END 2021-02-14 14:02 | disposition home or self-care (01) | DRG 788 ==
LOC: MW.OB 05:41 → OBSVTOIN 06:06 → MW.OB 06:06
PROVIDERS: ADMIT Obstetrics & Gynecology; ATTEND Obstetrics & Gynecology
PROC: 10D00Z1 Extraction of Products of Conception, Low, Open Approach (ICD-10-PCS; principal; 2021-02-13)
DX: O34.211 Maternal care for low transverse scar from previous cesarean delivery (principal); Z3A.38 38 weeks gestation of pregnancy; Z37.0 Single live birth
CPT/HCPCS: 36415; 59025; 85014; 85018; 85027; 86592; 86850; 86900; 86901; A9270-GY; J0690; J1885; J2270; J2405; J2590; J7120

== ENCOUNTER 2022-06-01 08:59 | Inpatient (IN) | payer MEDICAID ==
[2022-06-01] MEDS ORDERED: Ondansetron 4 MG/2 ML SDV IVPUSH PRN ×2 (09:26→14:36)
[2022-06-01] MEDS ORDERED: Sodium Chloride 0.9% 20 ML SDV IV PRN (09:26)
[2022-06-01] MEDS ORDERED: Sodium Chloride 0.9% 10 ML Syringe FLUSH PRN (09:26)
[2022-06-01] MEDS ORDERED: Sodium Chloride 0.9% 2.5 ML Syringe FLUSH PRN (09:26)
[2022-06-01] MEDS ORDERED: Citric Acid/Sodium Citrate Solution 30 ML Cup PO ONE (09:26)
[2022-06-01] MEDS ORDERED: Lactated Ringers 1,000 ML IV SCH ×2 (09:30→14:45)
[2022-06-01] MEDS ORDERED: Oxytocin/0.9 % Sodium Chloride 30 UNIT/500 ML BAG IV SCH ×2 (09:30→14:45)
[2022-06-01] MEDS ORDERED: Clindamycin Phosphate in D5W 900 MG in Premix Bag 1 BAG IV ONE ×2 (10:09)
[2022-06-01] MEDS ORDERED: Gentamicin 400 MG in Sodium Chloride 0.9% 50 ML IV ONE (11:00)
[2022-06-01] MEDS ORDERED: Azithromycin 500 MG in Sodium Chloride 0.9% 250 ML IV ONE (11:00)
[2022-06-01] MEDS ORDERED: Famotidine 20 MG/2 ML SDV IVPUSH ONE (12:26)
[2022-06-01] MEDS ORDERED: Oxytocin 10 Units/1 ML SDV ONE (12:27)
[2022-06-01] MEDS ORDERED: Ondansetron 4 MG/2 ML SDV ONE (12:27)
[2022-06-01] MEDS ORDERED: Phenylephrine HCl In 0.9% NaCl 1 MG/10 ML Vial ONE (12:27)
[2022-06-01] MEDS ORDERED: Dexmedetomidine 200 MCG/2 ML SDV ONE (12:27)
[2022-06-01] MEDS ORDERED: Morphine PF 10 MG/10 ML SDV ONE (12:28)
[2022-06-01] MEDS ORDERED: Water For Injection, Sterile 20 ML ONE ×2 (12:28→12:34)
[2022-06-01] MEDS ORDERED: Ropivacaine 0.5% 5 MG/ML 30 ML SDV ONE (12:33)
[2022-06-01] MEDS ORDERED: Dexamethasone 4 MG/ML 5 ML MDV ONE (12:33)
[2022-06-01] MEDS ORDERED: Citric Acid/Sodium Citrate Solution 30 ML Cup ONE (12:45)
[2022-06-01] MEDS ORDERED: Bupivacaine 0.5% 10 ML SDV ONE (13:00)
[2022-06-01] MEDS ORDERED: ePHEDrine 50 MG/ML SDV ONE (13:25)
[2022-06-01] MEDS ORDERED: Tranexamic Acid 1,000 MG in Sodium Chloride 0.9% 100 ML IV PRN (14:36)
[2022-06-01] MEDS ORDERED: Misoprostol 200 MCG Tab RECTAL PRN (14:36)
[2022-06-01] MEDS ORDERED: Acetaminophen/oxyCODONE 325-5 MG Tab PO PRN (14:36)
[2022-06-01] MEDS ORDERED: diphenhydrAMINE 50 MG/ML SDV IVPUSH PRN ×2 (14:36→15:05)
[2022-06-01] MEDS ORDERED: Methylergonovine 0.2 MG/1 ML Amp IM PRN (14:36)
[2022-06-01] MEDS ORDERED: Bisacodyl 10 MG Supp RECTAL PRN (14:36)
[2022-06-01] MEDS ORDERED: Lanolin 100% Cream 7 GM Tube TOP PRN (14:36)
[2022-06-01] MEDS ORDERED: Oxytocin 10 Units/1 ML SDV IM PRN (14:36)
[2022-06-01] MEDS ORDERED: Ketorolac 30 MG/ML SDV ONE (14:42)
[2022-06-01] MEDS ORDERED: fentaNYL 100 MCG/2 ML SDV IVPUSH PRN (15:05)
[2022-06-01] MEDS ORDERED: Naloxone 0.4 MG/ML SDV IVPUSH PRN (15:05)
[2022-06-01] MEDS ORDERED: ePHEDrine 50 MG/ML SDV IVPUSH PRN (15:06)
[2022-06-01] MEDS ORDERED: Phenylephrine HCl In 0.9% NaCl 1 MG/10 ML Vial IVPUSH SCH (15:15)
[2022-06-01] MEDS: Ketorolac 30 MG/ML SDV IVPUSH SCH ×2 (15:48→22:12)
[2022-06-01] MEDS ORDERED: Nicotine 14 MG/24 Hr Patch TRDERM SCH (21:45)
[2022-06-01] MEDS: Docusate Sodium 100 MG Cap PO SCH (22:12)
[2022-06-02] MEDS: Ketorolac 30 MG/ML SDV IVPUSH SCH ×3 (03:27→15:53)
[2022-06-02] MEDS: Docusate Sodium 100 MG Cap PO SCH ×2 (08:57→20:39)
[2022-06-03] MEDS: Ibuprofen 800 MG Tab PO PRN ×2 (01:38→09:28)
[2022-06-03] MEDS: Acetaminophen/oxyCODONE 325-5 MG Tab PO PRN ×2 (05:19→09:26)
[2022-06-03] MEDS: Docusate Sodium 100 MG Cap PO SCH (09:27)
== END 2022-06-03 14:12 | disposition home or self-care (01) | DRG 788 ==
LOC: MW.OBCHECK 08:59 → MW.OB 09:02 → MW.OBCHECK 09:26 → MW.OB 19:34
PROVIDERS: ADMIT Obstetrics & Gynecology Obstetrics; ATTEND Obstetrics & Gynecology Obstetrics
PROC: 10D00Z1 Extraction of Products of Conception, Low, Open Approach (ICD-10-PCS; principal; 2022-06-01)
DX: O34.211 Maternal care for low transverse scar from previous cesarean delivery (principal); Z37.0 Single live birth; Z3A.37 37 weeks gestation of pregnancy; O99.334 Smoking (tobacco) complicating childbirth; F17.200 Nicotine dependence, unspecified, uncomplicated; Z20.822 Contact with and (suspected) exposure to COVID-19; Z90.49 Acquired absence of other specified parts of digestive tract
CPT/HCPCS: 01961; 36415; 64488; 80305-QW; 85014; 85018; 85027; 86592; 86850; 86900; 86901; A9270-GY; J0456; J1100; J1200; J1580; J1885; J2274; J2405; J2590; J2795; J3490; J7050; J7120; U0002

== ENCOUNTER 2023-02-27 21:20 | Emergency (ER) | payer MEDICAID | END 2023-02-27 22:20 | disposition home or self-care (01) | LOC: MW.ED 21:20 | DX: S80.12XA Contusion of left lower leg, initial encounter (principal); S80.211A Abrasion, right knee, initial encounter; Z72.0 Tobacco use; Z88.0 Allergy status to penicillin; Z88.8 Allergy status to other drugs, medicaments and biological substances; W18.09XA Striking against other object with subsequent fall, initial encounter; W17.82XA Fall from (out of) grocery cart, initial encounter | CPT/HCPCS: 99283 ==

== ENCOUNTER 2025-02-18 11:26 | Emergency (ER) | payer MEDICAID ==
[2025-02-18] MEDS: cefTRIAXone 1 GM in Lidocaine 1% 2.1 ML IM ONE (15:04)
== END 2025-02-18 15:30 | disposition home or self-care (01) ==
LOC: MW.ED 11:26
DX: K04.7 Periapical abscess without sinus (principal); F17.210 Nicotine dependence, cigarettes, uncomplicated; Z79.899 Other long term (current) drug therapy; Z88.0 Allergy status to penicillin; Z88.2 Allergy status to sulfonamides; Z75.8 Other problems related to medical facilities and other health care
CPT/HCPCS: 96372; 99283; J0696; J1100; J2003; 99282